=== PATIENT | female | born 1960 | race Caucasian/White ===

== ENCOUNTER 2016-05-27 04:49 | Inpatient (IN) | payer OTHER ==
[2016-05-05 13:30] VITALS: BMI 40.0
--- NOTE | 2016-05-05 14:12 | PAT Medication Instructions ---
Service Date May 05, 2016. Current Home Medication List Ibuprofen (Advil), 600-800 MG PO PRN Medication Instructions For Your Scheduled Surgery - Per surgeon instructions: Ibuprofen (Advil), 600-800 MG PO PRN If you have any questions please call us at [phone] (Dede Glaser PA-C ) or [phone] or [phone]
[2016-05-05 14:54] LABS: BASO % 0.2 %; BASO ABS # 0.02 K/uL (0-0.2); COMPLETE YES; EOS % 1.6 %; HEMATOCRIT 39.6 % (37-47); IG% 0.2 %; LYMPH % 43.5 %; LYMPH ABS # 3.61 K/uL (1.2-3.4); MEAN CELL VOLUME 89.2 fL (80-100); MEAN CORPUSCULAR HEMOGLOBIN 30.6 pg (25-34); MEAN CORPUSCULAR HGB CONC 34.3 g/dl (32-36); MEAN PLATELET VOLUME 9.4 fL (7.4-10.4); MONO % 5.3 %; NEUT % 49.2 %; PLATELET COUNT 324 K/uL (130-400); RED BLOOD COUNT 4.44 M/uL (4.2-5.4)
[2016-05-05 15:04] LABS: URINE APPEARANCE CLEAR (CLEAR); URINE BILIRUBIN NEG (NEG); URINE COLOR YELLOW; URINE NITRITE NEG (NEG); URINE PH 5.5 (4.5-7.5); URINE SPECIFIC GRAVITY 1.015 (1.000-1.030); UROBILINOGEN NEG (NEG); ZZUR CULT IF INDIC CLEAN CATCH NO
[2016-05-05 15:07] LABS: PARTIAL THROMBOPLASTIN RATIO 1.1; PROTHROMBIN TIME (PATIENT) 10.4 SECONDS (9.0-12.0)
[2016-05-05 15:09] LABS: MANUAL MICROSCOPIC REQUIRED? NO; REVIEW REQ? NO
[2016-05-05 15:14] LABS: BUN/CREATININE RATIO 15.2 (10-20); CALCIUM 9.1 mg/dl (8.5-10.1); CREATININE 0.88 mg/dl (0.60-1.20); POTASSIUM 3.8 mmol/L (3.5-5.1)
--- NOTE | 2016-05-05 15:15 | DIAGNOSTIC IMAGING REPORT ---
TWO VIEW CHEST CLINICAL HISTORY: Preoperative examination. FINDINGS: PA and lateral chest radiographs are obtained. No prior studies are available for comparison at the time of dictation. The examination is modestly degraded by large body habitus. The cardiomediastinal silhouette is unremarkable. The lungs and pleural spaces are clear. There is no pneumothorax. The skeletal structures are osteopenic. The bony thorax appears intact. IMPRESSION: No active disease in the chest. Electronically signed by: Peter Cabello M.D. 05/05/2016 3:13 PM Dictated Date/Time: 05/05/2016 3:13 PM
--- NOTE | 2016-05-26 15:36 | HISTORY & PHYSICAL EXAMINATION ---
DATE OF ADMISSION: 05/27/2016 CHIEF COMPLAINT: Left hip pain. HISTORY OF PRESENT ILLNESS: Hellen is a 56-year-old female with a 2-year history of pain in her left hip. The patient rates her pain a 3/10. She has pain with her daily activities. She has limited standing and walking tolerance. Pain is worse with weightbearing. The patient has history of anti-inflammatories without relief. She has failed conservative treatment and is scheduled for a left hip replacement. PAST MEDICAL HISTORY: History of anemia, obesity, asthma. She denies heart disease, diabetes or DVT. PAST SURGICAL HISTORY: Right total hip arthroplasty, D\T\C and tubal ligation. SOCIAL HISTORY: The patient denies alcohol use. She smokes half pack a day x30 years. She lives in a single story home. 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 FAMILY HISTORY: Positive for diabetes, positive for DVT in her father. MEDICATIONS: Motrin p.r.n. ALLERGIES: HYDROCODONE CAUSES ITCHING. REVIEW OF SYSTEMS: See HPI. Ten other systems reviewed, all negative. PHYSICAL EXAMINATION: VITAL SIGNS: Height 5 foot 5. Weight 242 pounds. BMI is 40. GENERAL: This is a well-developed, well-nourished female who is alert and oriented x3. Mood and affect are appropriate. HEAD, EYES, EARS, NOSE, AND THROAT: Normocephalic, atraumatic. Mucous membranes are moist and intact. NECK: Supple without lymphadenopathy. HEART: Regular rate and rhythm without murmurs, rubs or gallops. LUNGS: Clear to auscultation without wheezes or rhonchi. ABDOMEN: Soft and nontender. Bowel sounds are equal and active. EXTREMITIES: No ecchymosis, redness or warmth. Log roll of the hip reproduces pain in the groin. Range of motion is decreased. She is neurovascularly intact with +5/5 strength. X-RAY EXAMINATION: AP and lateral views show joint space narrowing and osteophyte formation. IMPRESSION: 1. Degenerative joint disease, left hip. 2. Morbid obesity. PLAN: The patient will be admitted for a left total hip arthroplasty. We will plan on aspirin for DVT prophylaxis. The patient will have home physical therapy postoperatively. PCP is Dr. Tyler Solomon of [facility].
[2016-05-27] VITALS (8 sets, daily range): BP systolic 93–137; BP diastolic 57–92; PULSE 59–75; TEMP 36.3–36.8; O2SAT 96–100; Ht 165.1 cm; Wt 109.1 kg
[~2016-05-27] VITALS: Ht 165.1 cm; Wt 109.1 kg
[~2016-05-27 04:49] MED LIST: IBUP-1050 PO
[2016-05-27] MEDS ORDERED: FAMOTIDINE 20 MG TAB PO SCH (06:00)
[2016-05-27] MEDS ORDERED: CeleBREX 200 MG CAP PO SCH (06:00)
[2016-05-27] MEDS ORDERED: GABAPENTIN 300 MG CAP PO SCH (06:00)
[2016-05-27] MEDS ORDERED: CEFAZOLIN 2000 MG/60 ML D5W 60 ML IV SCH (06:00)
[2016-05-27] MEDS ORDERED: OXYCODONE HCL 10 MG TABCR (OXYCONTIN) PO SCH (06:00)
[2016-05-27] MEDS ORDERED: LACTATED RINGER'S 1000ML IV SCH (06:00)
[2016-05-27] MEDS ORDERED: METOCLOPRAMIDE HCL 10 MG TAB PO SCH (06:00)
[2016-05-27] MEDS ORDERED: ACETAMINOPHEN 500 MG TAB PO SCH (06:00)
[2016-05-27] MEDS ORDERED: ROPIVACAINE 5MG/ML 30 ML 150 MG, BUPIVACAINE/EPINEPHR 0.5% MPF 30 ML, KETOROLAC TROMETH... INFIL SCH ×7 (06:00)
[2016-05-27] MEDS ORDERED: VANCOMYCIN INJ 400 MG in NSS 100ML IR SCH (06:00)
[2016-05-27] MEDS ORDERED: POLYMYXIN B SULFATE 100,000 UNITS in NSS 100ML IR SCH (06:00)
[2016-05-27] MEDS ORDERED: DEXAMETHASONE 4 MG TAB PO SCH (06:00)
[2016-05-27] MEDS: TRANEXAMIC ACID INJ 1,000 MG in SODIUM CHLORIDE 0.9% 100ML 100 ML IV SCH ×2 (06:07→06:30)
[2016-05-27] MEDS ORDERED: BUPIVACAINE 0.5 % 5 MG/1 ML PF 10ML VIAL ONE (06:15)
[2016-05-27] MEDS ORDERED: SCOPOLAMINE 1.5 MG TDSY TD ONE (06:45)
[2016-05-27] MEDS ORDERED: NURSING VERBAL MED ORDER STA (06:51)
--- NOTE | 2016-05-27 06:56 | History & Physical Bridge Note ---
H&P Re-Evaluation Bridge Note: I have examined the patient, reviewed the History & Physical and in the interval since the performance of the History & Physical I have noted the following changes of clinical significance: No changes noted
[2016-05-27] MEDS ORDERED: MIDAZOLAM HCL 1 MG/ML 2ML VIAL ONE (06:57)
[2016-05-27] MEDS ORDERED: ORTHO JOINT ANESTHETIC ONE (06:58)
[2016-05-27] MEDS ORDERED: POVIDONE-IODINE OP SOLN 30 ML BTL ONE (06:58)
[2016-05-27] MEDS ORDERED: BACITRACIN 50000 UNIT VIAL ONE (06:58)
[2016-05-27] MEDS ORDERED: KETAMINE HCL INJ 50 MG/ML 10 ML VIAL ONE (07:25)
[2016-05-27] MEDS ORDERED: FENTANYL CITRATE INJ 50 MCG/1 ML 2 ML VIAL ONE (07:28)
[2016-05-27] MEDS ORDERED: ONDANSETRON INJ 2 MG/ML 2 ML VIAL IV PRN ×2 (07:45→09:00)
[2016-05-27] MEDS ORDERED: EpHEDrine SULFATE INJ 50 MG/ML AMP IV PRN (07:45)
[2016-05-27] MEDS ORDERED: ATROPINE SULFATE 0.1 MG/ML 5ML SYR IV PRN (07:45)
[2016-05-27] MEDS ORDERED: FENTANYL CITRATE INJ 50 MCG/1 ML 2 ML VIAL IV PRN (07:45)
[2016-05-27] MEDS ORDERED: LIDOCAINE HCL 2% 2 ML VIAL (20MG/ML) ONE (07:49)
[2016-05-27] MEDS ORDERED: PHENYLEPHRINE 100MCG/ML 5ML SYR ONE (07:49)
[2016-05-27] MEDS ORDERED: EpHEDrine SULFATE 50MG/5ML SYR ONE (07:49)
[2016-05-27] MEDS ORDERED: PROPOFOL IV EMULSION 10 MG/ML 20 ML VIAL IV ONE ×2 (07:50→08:28)
[2016-05-27] MEDS ORDERED: EpHEDrine SULFATE INJ 50 MG/ML AMP ONE (08:18)
--- NOTE | 2016-05-27 08:55 | [facility] Post Operative Brief Note ---
Immediate Operative Summary Operative Date May 27, 2016. Pre-Operative Diagnosis Degenerative joint disease, left hip Post-Operative Diagnosis Degenerative joint disease, left hip MORBID OBESITY BMI 40 Procedure(s) Performed Left total hip arthroplasty, direct approach Surgeon Dr Bob Sherman Power Plant Operations Manager Surgeon(s) Meenu Hill PA-C Estimated Blood Loss 200ML Findings OBESE SEVERE DJD Specimens A: Left femoral head Complication(s) None Disposition Recovery Room / PACU
[2016-05-27] MEDS ORDERED: MoRPHine SULFATE 2 MG/ML CARP IV PRN (09:00)
[2016-05-27] MEDS: MULTIVITAMIN TAB PO SCH (09:00)
[2016-05-27] MEDS ORDERED: ZOLPIDEM TARTRATE 5 MG TAB PO PRN (09:00)
[2016-05-27] MEDS ORDERED: DiphenhydrAMINE HCL 50 MG/ML VIAL IV PRN (09:00)
[2016-05-27] MEDS ORDERED: SOD PHOSPHATE/SOD BIPHOSPHATE ENEMA 132 ML BTL PR PRN (09:00)
[2016-05-27] MEDS ORDERED: METOCLOPRAMIDE HCL INJ 5 MG/ML 2 ML VIAL IV PRN (09:00)
[2016-05-27] MEDS ORDERED: ALUMINUM/MAGNESIUM/SIMETH (MAALOX MAX) 30 ML UDC PO PRN (09:00)
[2016-05-27] MEDS ORDERED: OXYCODONE HCL IR 5 MG TAB (IMMEDIATE RELEASE) PO PRN (09:00)
[2016-05-27] MEDS ORDERED: BISACODYL 10 MG SUPP PR PRN (09:00)
[2016-05-27] MEDS ORDERED: TRAMADOL HCL 50 MG TAB PO PRN (09:00)
[2016-05-27] MEDS ORDERED: MAGNESIUM HYDROXIDE SUSP 30 ML UDC PO PRN (09:00)
--- NOTE | 2016-05-27 09:10 | DIAGNOSTIC IMAGING REPORT ---
INTRAOPERATIVE LEFT HIP SINGLE VIEW CLINICAL HISTORY: Left hip arthroplasty COMPARISON STUDY: No previous studies for comparison. FINDINGS: 12 seconds of fluoroscopic time was utilized. A single fluoroscopic spot images provided for interpretation. This demonstrates a total left hip arthroplasty. There is no dislocation. The distal portion of femoral spike is not included. IMPRESSION: Intraoperative radiograph demonstrating a total left hip arthroplasty. Electronically signed by: Ruiz Flannery M.D. 05/27/2016 9:09 AM Dictated Date/Time: 05/27/2016 9:08 AM
--- NOTE | 2016-05-27 09:36 | DIAGNOSTIC IMAGING REPORT ---
AP PELVIS AND LEFT HIP 2 VIEWS CLINICAL HISTORY: Left hip arthroplasty COMPARISON STUDY: No previous studies for comparison. FINDINGS: Bilateral total hip arthroplasties are visualized. On the left there are overlying surgical drains. There is air within the soft tissues consistent with recent surgery. There are no acute fractures. No dislocations are evident. IMPRESSION: Postsurgical changes of a recent total left hip arthroplasty. No evidence of fracture or dislocation. Electronically signed by: Ruiz Flannery M.D. 05/27/2016 9:35 AM Dictated Date/Time: 05/27/2016 9:34 AM
--- NOTE | 2016-05-27 09:58 | Anesthesiology Progress Note ---
Anesthesia Post Op Note Date & Time May 27, 2016 at 09:58 Vital Signs Pain Intensity: 0 Vital Signs Past 12 Hours Date Time Temp Pulse Resp B/P Pulse Ox O2 Delivery O2 Flow Rate FiO2 05/27/16 09:50 60 14 107/50 100 Nasal Cannula 2 05/27/16 09:40 60 15 103/55 100 Nasal Cannula 2 05/27/16 09:30 62 17 109/58 99 Nasal Cannula 2 05/27/16 09:20 60 13 114/60 100 Nasal Cannula 2 05/27/16 09:14 36.0 68 15 109/63 99 Nasal Cannula 2 05/27/16 05:33 36.8 72 18 137/92 96 Room Air Notes Mental Status: alert / awake / arousable, participated in evaluation Pt Amnestic to Procedure: Yes Nausea / Vomiting: adequately controlled Pain: adequately controlled Airway Patency, RR, SpO2: stable & adequate BP & HR: stable & adequate Hydration State: stable & adequate Neuraxial Anesthesia: was administered, sensory block is resolving Anesthetic Complications: no major complications apparent
[2016-05-27] MEDS: D5W AND 1/2NSS + 20MEQ KCL 1,000 ML IV SCH ×2 (11:07→20:35)
--- NOTE | 2016-05-27 11:43 | OPERATIVE REPORT ---
DATE OF OPERATION: 05/27/2016 PREOPERATIVE DIAGNOSES: 1. Degenerative arthritis, left hip. 2. Morbid obesity, BMI 40. POSTOPERATIVE DIAGNOSES: Same. PROCEDURE: Left total hip replacement. SURGEON: Bob Sherman MD DINKEY BRAKEMAN: Meneu Hill PA-C. ANESTHESIA: Spinal. BLOOD LOSS: 200 mL. REPLACEMENT FLUIDS: 1800 mL of crystalloid. DRAINS: Hemovac x2. CULTURES: None. COMPLICATIONS: None. COMPONENTS USED: [employer] hip system: Acetabulum size 52, femur size 5 standard offset, femoral head 0, neck length 36 mm. NOTE: Meenu Hill PA-C was present and assisted throughout due to the complicated nature of this case. She helped with preparation and set up. She first assisted throughout and personally closed the fascial, subcutaneous and skin layers and applied the postoperative dressing. DESCRIPTION: Following satisfactory spinal, the patient was supine. The left leg was placed in the traction device, the right leg in the well leg robertson. The leg was prepared with ChloraPrep and draped sterilely. Following a surgical time-out, an anterior approach was performed. The patient had an extremely large subcutaneous fat layer which made the approach difficult and added extra time and difficulty to the case. Eventually, hemostasis was controlled, the interval between the sartorius and tensor muscles was identified, the circumflex vessels were extremely thin and were coagulated. An anterior capsulotomy was performed exposing a severely arthritic femoral neck and head which were trimmed and removed. The acetabular self-retraining retractor was placed. Acetabular reaming was completed and with fluoroscopic guidance, a 52 shell was impacted and secured with a dome screw. Local anesthetic was placed and after irrigation, the poly liner was placed. The femur was placed into position of external rotation, extension and adduction. The femoral canal was difficult to identify because of the obesity. The canal was prepared up to a size 5 trial reduction with a 0 neck length head showed good soft tissue tension, good fit and fill of the proximal canal and leg lengths restored using fluoroscopic landmarks. The hip was dislocated. The trial component was removed. The final implant was placed and reduction with fluoroscopy confirmed similar position. A Betadine soak was performed. After 5 minutes the Betadine was irrigated. The capsule was closed with 1-0 Vicryl interrupted. The fascia with 1-0 Vicryl running. Another drain was placed in the fatty layer which was closed in 2 layers with #1 Vicryl and 2-0 Vicryl. Skin was closed with a running subcuticular stitch of 3-0 V-Loc. Dermabond and dry dressing were applied. The patient was returned to her bed in stable condition. I attest to the content of the Intraoperative Record and any orders documented therein. Any exceptio ns are noted below.
[2016-05-27] MEDS: PANTOprazole SOD 40 MG TAB PO SCH (12:20)
[2016-05-27] MEDS: ACETAMINOPHEN 500 MG TAB PO SCH ×2 (13:40→21:36)
[2016-05-27] MEDS: CEFAZOLIN IV 2,000 MG in DEXTROSE 5% 50ML 50 ML IV SCH ×2 (13:41→21:35)
[2016-05-27] MEDS: KETOROLAC TROMETHAMINE 30 MG/ML VIAL IV. SCH ×2 (13:59→20:34)
[2016-05-27] MEDS ORDERED: TRANEXAMIC ACID INJ 1,000 MG in SODIUM CHLORIDE 0.9% 100ML 100 ML IV SCH (15:00)
[2016-05-27] MEDS: ASPIRIN 81 MG ECTAB PO SCH (20:35)
[2016-05-27] MEDS ORDERED: SENNA 8.6 MG TAB PO SCH (21:00)
[2016-05-28] MEDS: KETOROLAC TROMETHAMINE 30 MG/ML VIAL IV. SCH ×2 (01:51→07:36)
[2016-05-28 03:06] VITALS: BP 112/75; PULSE 65; TEMP 36.8; O2SAT 98
[2016-05-28] MEDS: ACETAMINOPHEN 500 MG TAB PO SCH (05:41)
[2016-05-28] MEDS: D5W AND 1/2NSS + 20MEQ KCL 1,000 ML IV SCH (05:42)
[2016-05-28 05:50] LABS: BASO ABS # 0.01 K/uL (0-0.2); COMPLETE YES; HEMATOCRIT 31.8 % (37-47); IG% 0.3 %; LYMPH % 10.5 %; LYMPH ABS # 2.15 K/uL (1.2-3.4); MEAN CELL VOLUME 90.9 fL (80-100); MEAN CORPUSCULAR HEMOGLOBIN 30.6 pg (25-34); MEAN CORPUSCULAR HGB CONC 33.6 g/dl (32-36); MEAN PLATELET VOLUME 9.9 fL (7.4-10.4); MONO % 6.6 %; NEUT % 82.6 %; PLATELET COUNT 255 K/uL (130-400); WHITE BLOOD COUNT 20.46 K/uL (4.8-10.8)
[2016-05-28 06:21] LABS: BUN/CREATININE RATIO 13.5 (10-20); CALCIUM 8.7 mg/dl (8.5-10.1); CREATININE 0.71 mg/dl (0.60-1.20); POTASSIUM 4.2 mmol/L (3.5-5.1)
[2016-05-28 07:20] VITALS: BP 142/82; PULSE 57; TEMP 36.8; O2SAT 100
[2016-05-28] MEDS: ASPIRIN 81 MG ECTAB PO SCH (07:36)
[2016-05-28] MEDS: PANTOprazole SOD 40 MG TAB PO SCH (07:36)
[2016-05-28] MEDS: MULTIVITAMIN TAB PO SCH ×2 (07:36→07:37)
[2016-05-28 07:59] VITALS: BP 142/82; PULSE 57; TEMP 36.8; O2SAT 100
--- NOTE | 2016-05-28 08:54 | Orthopedic Progress Note ---
Orthopedic Progress Note Date of Service May 28, 2016. Subjective Post OP Day: 1 Reports: complaints (Main complaint is wanting to get home so she can be home and have a cigarette.), feeling well, pain controlled w PO medications, Denies: SOB, calf pain, chest pain, light headedness, nausea / vomiting Additional Notes: No complaints from the patient. Pain is controlled in the left hip. She states she is using the IV pole as her cane. She doesn't want to use a walker. States she knows when she is having trouble lifting the left leg. Objective calves soft nontender, N/V intact, capillary refill less than 2 sec., incision C /D/I, A&O x3, toes mobile Hemovac has been removed by nursing since the patient was talking about signing out AMA. Date Time Temp Pulse Resp B/P Pulse Ox O2 Delivery O2 Flow Rate FiO2 05/28/16 07:59 36.8 57 18 100 Room Air 05/28/16 07:45 Room Air 05/28/16 07:20 36.8 57 18 142/82 100 Room Air 05/28/16 03:06 36.8 65 18 112/75 98 Room Air 05/27/16 23:25 Room Air 05/27/16 23:15 36.8 74 17 109/66 98 Room Air 05/27/16 15:20 Room Air 05/27/16 13:47 36.7 75 19 100/59 98 Room Air 05/27/16 12:34 36.3 75 18 116/68 97 Nasal Cannula 2.0 05/27/16 11:29 99 Nasal Cannula 2.0 05/27/16 11:25 36.7 71 18 93/64 99 Nasal Cannula 2.0 05/27/16 10:56 Nasal Cannula 2.0 05/27/16 10:55 36.4 59 18 98/60 99 Nasal Cannula 2.0 05/27/16 10:51 Nasal Cannula 2.0 05/27/16 10:25 36.4 73 16 101/57 100 Nasal Cannula 2.0 05/27/16 10:10 59 12 99/56 100 Nasal Cannula 2 05/27/16 10:00 36.5 69 18 101/56 100 Nasal Cannula 2 05/27/16 09:50 60 14 107/50 100 Nasal Cannula 2 05/27/16 09:40 60 15 103/55 100 Nasal Cannula 2 05/27/16 09:30 62 17 109/58 99 Nasal Cannula 2 05/27/16 09:20 60 13 114/60 100 Nasal Cannula 2 05/27/16 09:14 36.0 68 15 109/63 99 Nasal Cannula 2 Laboratory Results 24 Hours: Test 05/28/16 05:25 White Blood Count 20.46 K/uL Red Blood Count 3.50 M/uL Hemoglobin 10.7 g/dL Hematocrit 31.8 % Mean Corpuscular Volume 90.9 fL Mean Corpuscular Hemoglobin 30.6 pg Mean Corpuscular Hemoglobin Concent 33.6 g/dl Platelet Count 255 K/uL Mean Platelet Volume 9.9 fL Neutrophils (%) (Auto) 82.6 % Lymphocytes (%) (Auto) 10.5 % Monocytes (%) (Auto) 6.6 % Eosinophils (%) (Auto) 0.0 % Basophils (%) (Auto) 0.0 % Neutrophils # (Auto) 16.88 K/uL Lymphocytes # (Auto) 2.15 K/uL Monocytes # (Auto) 1.35 K/uL Eosinophils # (Auto) 0.00 K/uL Basophils # (Auto) 0.01 K/uL Assessment & Plan Assessment: POD #1 s/p left KERI Inhouse Planning Pain Management: Toradol, Ultram, Morphine, PO Tylenol, Oxy IR DVT Prophylaxis: TEDs, ASA (81 mg BID) Discharge Planning Discharge Planning: home (D/C home today) Pain Management: PO Tylenol, Oxy IR, other (MS Contin) DVT Prophylaxis: TEDs, ASA
[2016-05-28] MEDS ORDERED: RXC5 PO (08:57)
[2016-05-28] MEDS ORDERED: ACET-1138 PO (08:57)
[2016-05-28] MEDS ORDERED: ASPEC81 PO (08:57)
[2016-05-28] MEDS ORDERED: MORP15TA19 PO (08:57)
[2016-05-28] MEDS ORDERED: ONDA8TAB6 PO (08:57)
[2016-05-28] MEDS ORDERED: CLB200 PO (08:57)
--- NOTE | 2016-05-28 09:00 | Discharge Instructions ---
Discharge Instructions Date of Service May 28, 2016. Admission Reason for Admission: Left Degenerative Arthritis - Thigh/Pelvis Discharge Discharge Diagnosis / Problem: left hip osteoarthritis Discharge Goals Goal(s): Decrease discomfort, Improve function Activity Recommendations Activity Limitations: as noted below Lifting Limitations: until after follow-up appointment Exercise/Sports Limitations: until after follow-up appointment May Resume Sexual Activity: when tolerated Shower/Bathe: keep incision dry Driving or Machine Use: When cleared by Dr. Sherman's clinic Weightbearing Status: Left weightbearing (as tolerated) . Instructions / Follow-Up Instructions / Follow-Up ACTIVITY RECOMMENDATIONS: SELF CARE INSTRUCTIONS AFTER TOTAL HIP REPLACEMENT : Direct Anterior Approach Until the incision and soft tissues around your hip have healed, there is a possibility that the hip prosthesis could dislocate. A. Hip flexion ( Up & Down out of chair or steps ) may be difficult. This is normal. B. Numbness in front of the thigh is also normal for a few weeks. C. Use hand rails when walking on stairs. D. Wear low heeled shoes with non-slip soles. E. Be sure that your floors are free of things that could trip you - throw rugs , electrical cords, small objects. Avoid wet and waxed floors, especially with crutches and canes. F. Try to walk several times a day with rest periods between. G. Continue with all the exercises taught to you in the hospital. Again, make walking a part of your daily routine. SPECIAL CARE INSTRUCTIONS: VERY IMPORTANT TO READ AND REVIEW A. You may still be at risk for phlebitis and blood clots. 1. Wear surgical stockings (ARYAN hose) for 2 weeks after surgery to improve circulation and reduce swelling. 2. Take Aspirin 81mg twice daily for 4 weeks or as directed by your doctor. This is your blood thinner. 3. High risk patients may be prescribed a stronger blood thinner if necessary. 4. If you are on Coumadin normally, your family doctor/hospital chief financial officer should monitor your blood work. Expect a phone call the day of or the day after bloodwork is drawn to adjust your dosage. B. You must take antibiotics before having dental work, bladder, bowel and other surgery. Your doctor will provide you with a permanent card to carry describing precautions. C. Call [facility] if you have a fever, redness or swelling around the incision, cloudy drainage from incision, or sudden increase in pain in your hip, not relieved by your regular pain medication. D. Please call the office at if you have any concerns or questions about your operation or recovery. * YOU MAY SHOWER, NO TUB BATHS UNTIL CLEARED BY YOUR DOCTOR. - Keep an extra close eye on the top portion of your incision. Be sure to keep clean & dry. * WEAR ARYAN HOSE 20 HOURS PER DAY FOR 2 WEEKS. * YOU MAY PROGRESS FROM A WALKER, TO A CANE, TO INDEPENDENT AT YOUR OWN PACE. * MOST PATIENTS WILL HAVE HOME NURSING FOR THERAPY. IF YOU DECIDE TO DO OUTPATIENT PHYSICAL THERAPY, PLEASE SCHEDULE THIS 3 TIMES PER WEEK. * DERMABOND Prineo- This is a mesh tape dressing that is covered with glue. It should remain in place until the incision is properly healed, usually 10-14 days. This dressing is designed to naturally slough off. You may trim the excess mesh tape as it peels off. Incision may be briefly wet in a shower. Dry immediately by blotting with a clean, dry towel. Do not bath or swim until instructed by your doctor. Do not scratch, rub, or pick at the dressing. Do not apply any topical ointments or lotions until dressing is completely removed and/or instructed by your doctor. There may be a small piece of suture material at one end of your incision. Do not pull or trim this. If it is bothersome or catching on clothing, you may cover it with a band-aid. FOLLOW UP VISIT: If appointment is not already scheduled: Please call [facility] to make a follow-up appointment for 2 weeks after your surgery at . Current Hospital Diet Patient's current hospital diet: Regular Diet Discharge Diet Recommended Diet: Regular Diet Procedures Procedures Performed: Left total hip arthroplasty, direct anterior approach Pending Studies Studies pending at discharge: no Medical Emergencies . Who to Call and When: Medical Emergencies: If at any time you feel your situation is an emergency, please call 911 immediately. . Non-Emergent Contact Non-Emergency issues call your: Surgeon Call Non-Emergent contact if: temperature is above 101, your pain is not controlled, your pain is worsening, wound has increased drainage, wound has increased redness, wound has increased pain . "Provider Documentation" section prepared by Jonathan Sepulveda. VTE Core Measure Inpt VTE Proph given/why not?: Other Anticoagulation (Aspirin 81 mg every 12 hours for 30 days), TIsrael Aguirreings
[2016-05-29] MEDS ORDERED: CeleBREX 200 MG CAP PO SCH (21:00)
--- NOTE | 2016-05-30 15:15 | DISCHARGE SUMMARY ---
DISCHARGE DIAGNOSIS: Degenerative joint disease, left hip. SECONDARY DIAGNOSIS: None. CONSULTS: None. COMPLICATIONS: None. PROCEDURE: The patient underwent a direct anterior left total hip arthroplasty with Dr. Sherman on 05/27/2016. BRIEF HISTORY: Please see previously dictated history and physical. HOSPITAL SUMMARY: The patient was admitted on the above day for the above procedure. Procedure went without complication. Postop day #1, the patient was feeling well without complaints. She denied chest pain or shortness of breath. Vital signs were stable. She was afebrile. Dressing was clean, dry and intact. She was neurovascularly intact. Calves were soft and nontender. The patient's Hemovac was removed by nursing as she was threatening to sign out AMA. The patient was discharged home later that day in stable condition. For further review, please see the chart. Lab, x-ray data and discharge instructions as per chart.
== END 2016-05-28 10:29 | disposition home health service (06) | DRG 470 ==
LOC: ENRESERVTM → ENRESERVDT → C.ACU 04:49 → C.3E 08:58
PROVIDERS: ADMIT Orthopaedic Surgery; ATTEND Orthopaedic Surgery
PROC: 0SRB0JZ Replacement of Left Hip Joint with Synthetic Substitute, Open Approach (ICD-10-PCS; principal; 2016-05-27 07:15)
DX: M16.12 Unilateral primary osteoarthritis, left hip (principal); Z68.41 Body mass index [BMI] 40.0-44.9, adult; E66.01 Morbid (severe) obesity due to excess calories; Z96.641 Presence of right artificial hip joint; F17.210 Nicotine dependence, cigarettes, uncomplicated; Z83.3 Family history of diabetes mellitus

== ENCOUNTER 2016-06-05 18:51 | Emergency (ER) | payer OTHER ==
[~2016-06-05] VITALS: Ht 165.1 cm; Wt 110.2 kg
[~2016-06-05 18:51] MED LIST changes: +ACET-1138 PO; +ASPEC81 PO; +CLB200 PO; -IBUP-1050 PO; +MORP15TA19 PO; +ONDA8TAB6 PO; +RXC5 PO
[2016-06-05 19:01] VITALS: TEMP 37; Ht 165.1 cm; Wt 110.2 kg
--- NOTE | 2016-06-05 20:34 | EMERGENCY ROOM VISIT NOTE ---
History Report prepared by Brianna: Sav Fleming Under the Supervision of: Dr. Dejan Valencia M.D. First contact with patient: 20:15 Chief Complaint: HIP PAIN Stated Complaint: HEADACHE,NASAL DRIP,RT HIP PAIN-SURGERY LAST WEEK History of Present Illness The patient is a 56 year old female who presents to the Emergency Room with complaints of constant left hip pain starting yesterday. The patient state that she got her hip replaced 9 days ago, and it is currently hurting, and when she sat down earlier she felt a stabbing pain in her hip. She states that she is currently having swelling in her legs, fevers, chills, cough, headache, and shortness of breath while walking. The patient states that she should be taking Celebrex, however she has not gotten it yet. She states that she is not taking anything for pain currently. The patient denies any recent falls. Her daughter is also sick with respiratory symptoms and a cough and is being treated for influenza and pneumonia after testing positive for influenza B. No numbness or weakness in the legs. Source of History: patient, family Onset: yesterday Position: other (left hip) Quality: stabbing Timing: constant Associated Symptoms: + SOB, + chills, + cough, + fevers, + headache Note: Associated symptoms: Swelling in her legs Review of Systems See HPI for pertinent positives & negatives. A total of 10 systems reviewed and were otherwise negative. Past Medical & Surgical Surgical Problems: (1) History of arthroplasty of left hip (2) Post-operative state Old medical records were reviewed. Nurse's notes were reviewed and I agree with. Family History DVT Diabetes mellitus Social History Smoking Status: Current Every Day Smoker Drug Use: none Housing Status: lives with family Occupation Status: employed Current/Historical Medications Scheduled Aspirin (Aspirin EC Low Dose), 81 MG PO BID Azithromycin (Zithromax Z-Hudson), 0 PO UD Oseltamivir (Tamiflu), 75 MG PO BID Allergies Coded Allergies: Hydrocodone (Verified Allergy, Unknown, ITCHING, 06/05/16) Oxycodone (Unverified Allergy, Unknown, itching, 06/05/16) Physical Exam Vital Signs Date Time Temp Pulse Resp B/P Pulse Ox O2 Delivery O2 Flow Rate FiO2 06/05/16 23:38 88 18 113/74 96 06/05/16 22:22 74 16 121/59 98 06/05/16 19:01 37.0 79 18 159/86 98 Room Air Physical Exam General: Non-ill appearing middle aged female in no acute distress. HEENT: Normal cephalic atraumatic. Pupils are equal round and reactive to light. Sclera are anicteric. Extraocular movements are intact. Oropharynx is pink with moist mucous membranes. No swelling of the mouth lips or tongue. Neck: Supple with a midline trachea. No meningeal signs or stiffness, no JVD or bruits. No Stridor. Chest: Clear to auscultation bilaterally. No wheezes or rhonchi. No increased work of breathing. Heart: regular rate and rhythm. Abdomen: Soft nontender, nondistended without rebound guarding or rigidity. Extremities: Trace to 1+ edema in the right lower extremity. 1+ edema in the left lower extremity. Definite well healing incision without infection or dehiscence. No cyanosis or clubbing. No calf tenderness or assymetry Spine/Back. Non tender to palpation. No CVA tenderness Skin: Good turgor without rashes. Neurologic exam: Cranial nerves two through 12 are intact. Motor and sensation are intact and symmetrical throughout. Medical Decision & Procedures ER Provider Diagnostic Interpretation: Radiology results as stated below per my review and radiologist interpretation: CHEST ONE VIEW PORTABLE CLINICAL HISTORY: CHEST PAIN dyspnea COMPARISON STUDY: 05/05/2016 FINDINGS: Slightly prominent markings left base. Lungs otherwise appear clear. No evidence for cardiac enlargement. IMPRESSION: Early infiltrate left base Electronically signed by: Demian Vallejo M.D. 06/05/2016 8:55 PM Dictated Date/Time: 06/05/2016 8:54 PM BILATERAL LOWER EXTREMITY VENOUS DOPPLER HISTORY: Pain. Edema. eval for dv COMPARISON STUDY: None. FINDINGS: There is normal compressibility, flow, and augmentation within the bilateral lower extremity deep venous systems. IMPRESSION: No DVT within the right or left lower extremity. Electronically signed by: Demian Vallejo M.D. 06/05/2016 10:00 PM Dictated Date/Time: 06/05/2016 9:59 PM Laboratory Results 06/05/16 20:40 Red Blood Count 3.71, Mean Corpuscular Volume 90.6, Mean Corpuscular Hemoglobin 29.4, Mean Corpuscular Hemoglobin Concent 32.4, Mean Platelet Volume 8.4, Neutrophils (%) (Auto) 47.6, Lymphocytes (%) (Auto) 34.2, Monocytes (%) (Auto) 13.6, Eosinophils (%) (Auto) 3.2, Basophils (%) (Auto) 0.2, Neutrophils # (Auto ) 3.16, Lymphocytes # (Auto) 2.27, Monocytes # (Auto) 0.90, Eosinophils # (Auto ) 0.21, Basophils # (Auto) 0.01 06/05/16 20:40 Test 06/05/16 20:40 06/05/16 20:56 White Blood Count 6.63 K/uL (4.8-10.8) Red Blood Count 3.71 M/uL (4.2-5.4) Hemoglobin 10.9 g/dL (12.0-16.0) Hematocrit 33.6 % (37-47) Mean Corpuscular Volume 90.6 fL (80-100) Mean Corpuscular Hemoglobin 29.4 pg (25-34) Mean Corpuscular Hemoglobin Concent 32.4 g/dl (32-36) Platelet Count 429 K/uL (130-400) Mean Platelet Volume 8.4 fL (7.4-10.4) Neutrophils (%) (Auto) 47.6 % Lymphocytes (%) (Auto) 34.2 % Monocytes (%) (Auto) 13.6 % Eosinophils (%) (Auto) 3.2 % Basophils (%) (Auto) 0.2 % Neutrophils # (Auto) 3.16 K/uL (1.4-6.5) Lymphocytes # (Auto) 2.27 K/uL (1.2-3.4) Monocytes # (Auto) 0.90 K/uL (0.11-0.59) Eosinophils # (Auto) 0.21 K/uL (0-0.5) Basophils # (Auto) 0.01 K/uL (0-0.2) RDW Standard Deviation 46.3 fL (36.4-46.3) RDW Coefficient of Variation 13.9 % (11.5-14.5) Immature Granulocyte % (Auto) 1.2 % Immature Granulocyte # (Auto) 0.08 K/uL (0.00-0.02) Erythrocyte Sedimentation Rate 72 mm/hr (0-21) Prothrombin Time 10.0 SECONDS (9.0-12.0) Prothromb Time International Ratio 0.9 (0.9-1.1) Activated Partial Thromboplast Time 29.0 SECONDS (21.0-31.0) Partial Thromboplastin Ratio 1.1 Anion Gap 9.0 mmol/L (3-11) Est Creatinine Clear Calc Drug Dose 90.2 ml/min Estimated GFR () 88.8 Estimated GFR (Non- 76.6 BUN/Creatinine Ratio 22.3 (10-20) Calcium Level 9.2 mg/dl (8.5-10.1) Total Bilirubin 0.2 mg/dl (0.2-1) Direct Bilirubin < 0.1 mg/dl (0-0.2) Aspartate Amino Transf (AST/SGOT) 39 U/L (15-37) Alanine Aminotransferase (ALT/SGPT) 69 U/L (12-78) Alkaline Phosphatase 286 U/L (45-117) C-Reactive Protein 2.42 mg/dl (0-0.29) Total Protein 6.9 gm/dl (6.4-8.2) Albumin 2.9 gm/dl (3.4-5.0) Lipase 145 U/L (73-393) Bedside Troponin I 0.000 ng/ml (0-0.045) GT-Qtg-S-Type Natriuretic Peptide < 15 pg/ml (0-900) Lab results as reviewed by me Medications Administered Medications (Trade) Dose Ordered Sig/Miranda Route Start Time Stop Time Status Last Admin Dose Admin Azithromycin (Zithromax Tab) 500 mg NOW ONCE PO 06/05/16 23:15 06/05/16 23:16 DC 06/05/16 23:26 500 MG Oseltamivir Phosphate (Tamiflu Cap) 75 mg NOW STAT PO 06/05/16 23:13 06/05/16 23:14 DC 06/05/16 23:25 75 MG ECG Indication: other (hip pain) Rate (beats per minute): 72 Rhythm: normal sinus Findings: no acute ischemic change, no ectopy Comparison ECG Date: 05/05/16 Change: no significant change ED Course 2015: Past medical records reviewed. The patient was evaluated in room B7, and a complete history and physical examination were performed. 2307: Upon reevaluation, the patient is feeling better. I discussed the results and treatment plan with her. She verbalized agreement of the treatment plan. The patient was discharged home. 2313: Tamiflu Cap 75mg PO 2315: Zithromax Tab 500mg PO Medical Decision Differentials include, but are not limited to; DVT, CHF, infection, electrolyte or metabolic abnormality, cardiac disease. This patient comes in as described above. She has a constellation of symptoms. She recent hip surgery and has swelling on both of her legs left greater than right. She only has mild edema. This is new and she has been wearing compression stockings. Her incision looks like to healing well without infection. I did an extensive workup. Her symptoms do not suggest an acute cardiac event. EKG is nonischemic. Chest x-ray suggests infiltrate in the base . her daughter is being treated for influenza and pneumonia. I will treat her with for this as well she was given Tamiflu and azithromycin Z-Hudson, the first dose of both was given here. Ultrasounds her legs shows no evidence of DVT . at this point, I do not think this is likely related congestive heart failure or related to kidney problems. She also some pain management issues as she is unable take most pain medication is having a hard time getting her prescription filled at the pharmacy. I had a case picker talk to her and they're going to call and help her straighten this out tomorrow. Apparently there is some insurance and provider issues with approval. The patient feels good and would like to go home. I encouraged to return if: fever, worsening of symptoms, increasing pain or swelling, any new problems or concerns. I also encouraged her to follow-up with her doctor in 1-2 days for recheck. Impression Primary Impression: Lower extremity edema Additional Impressions: Left hip pain Flu-like symptoms Pneumonia Scribe Attestation The scribe's documentation has been prepared under my direction and personally reviewed by me in its entirety. I confirm that the note above accurately reflects all work, treatment, procedures, and medical decision making performed by me. Departure Information Dispostion Home / Self-Care Prescriptions Azithromycin (ZITHROMAX Z-HUDSON) 250 Mg Tab 0 PO UD, #1 PKT Prov: Dejan Valencia M.D. 06/05/16 Oseltamivir (Tamiflu) 75 Mg Cap 75 MG PO BID, #10 CAP Prov: Dejan Valencia M.D. 06/05/16 Referrals Tyler Solomon M.D. (PCP) Forms HOME CARE DOCUMENTATION FORM, IMPORTANT VISIT INFORMATION, WORK / SCHOOL INSTRUCTIONS Patient Instructions My [facility] Additional Instructions Rest. Drink plenty of fluids. Continue your pain medications and our case picker will help you get the Celebrex straighten out tomorrow. Use Tamiflu twice a day for 5 days Use azithromycin Z-Hudson for 5 days as directed Return if: Worsening of symptoms, chest pain, shortness of breath, fever chills , any new problems or concerns. Problem Qualifiers
--- NOTE | 2016-06-05 20:56 | DIAGNOSTIC IMAGING REPORT ---
CHEST ONE VIEW PORTABLE CLINICAL HISTORY: CHEST PAIN dyspnea COMPARISON STUDY: 05/05/2016 FINDINGS: Slightly prominent markings left base. Lungs otherwise appear clear. No evidence for cardiac enlargement. IMPRESSION: Early infiltrate left base Electronically signed by: Demian Vallejo M.D. 06/05/2016 8:55 PM Dictated Date/Time: 06/05/2016 8:54 PM
[2016-06-05 21:02] LABS: BASO % 0.2 %; BASO ABS # 0.01 K/uL (0-0.2); COMPLETE YES; EOS % 3.2 %; HEMATOCRIT 33.6 % (37-47); IG% 1.2 %; LYMPH % 34.2 %; LYMPH ABS # 2.27 K/uL (1.2-3.4); MEAN CELL VOLUME 90.6 fL (80-100); MEAN CORPUSCULAR HEMOGLOBIN 29.4 pg (25-34); MEAN CORPUSCULAR HGB CONC 32.4 g/dl (32-36); MEAN PLATELET VOLUME 8.4 fL (7.4-10.4); MONO % 13.6 %; NEUT % 47.6 %; PLATELET COUNT 429 K/uL (130-400); RED BLOOD COUNT 3.71 M/uL (4.2-5.4); WHITE BLOOD COUNT 6.63 K/uL (4.8-10.8)
[2016-06-05 21:09] LABS: INR 0.9 (0.9-1.1); PARTIAL THROMBOPLASTIN RATIO 1.1
[2016-06-05 21:16] LABS: POINT OF CARE PRO-BNP < 15 pg/ml (0-900)
[2016-06-05 21:18] LABS: ALT/SGPT 69 U/L (12-78); BLOOD UREA NITROGEN 19 mg/dl (7-18); BUN/CREATININE RATIO 22.3 (10-20); C-REACTIVE PROTEIN 2.42 mg/dl (0-0.29); CALCIUM 9.2 mg/dl (8.5-10.1); CARBON DIOXIDE 25 mmol/L (21-32); CHLORIDE 106 mmol/L (98-107); CREATININE 0.84 mg/dl (0.60-1.20); GLUCOSE 94 mg/dl (70-99); SODIUM 140 mmol/L (136-145)
[2016-06-05 21:21] LABS: ALKALINE PHOSPHATASE 286 U/L (45-117); AST/SGOT 39 U/L (15-37)
--- NOTE | 2016-06-05 22:01 | DIAGNOSTIC IMAGING REPORT ---
BILATERAL LOWER EXTREMITY VENOUS DOPPLER HISTORY: Pain. Edema. eval for dv COMPARISON STUDY: None. FINDINGS: There is normal compressibility, flow, and augmentation within the bilateral lower extremity deep venous systems. IMPRESSION: No DVT within the right or left lower extremity. Electronically signed by: Demian Vallejo M.D. 06/05/2016 10:00 PM Dictated Date/Time: 06/05/2016 9:59 PM
[2016-06-05] MEDS ORDERED: OSELTAMIVIR PHOSPHATE 75 MG CAP PO STA (23:13)
[2016-06-05] MEDS ORDERED: AZITHROMYCIN 250 MG TAB PO ONE (23:15)
[2016-06-05] MEDS ORDERED: OSEL75CA12 PO (23:16)
[2016-06-05] MEDS ORDERED: AZITTAB PO (23:22)
[2016-06-05 23:38] VITALS: BP 113/74; PULSE 88; O2SAT 96
== END 2016-06-05 23:38 | disposition home or self-care (01) ==
LOC: C.EDB 18:52
DX: R60.0 Localized edema (principal); M25.552 Pain in left hip; J18.9 Pneumonia, unspecified organism; Z96.642 Presence of left artificial hip joint; F17.200 Nicotine dependence, unspecified, uncomplicated; Z79.82 Long term (current) use of aspirin

== ENCOUNTER 2016-08-16 11:48 | Emergency (ER) | payer OTHER ==
[~2016-08-16] VITALS: Ht 165.1 cm; Wt 110.6 kg
[~2016-08-16 11:48] MED LIST changes: -ACET-1138 PO; -CLB200 PO; -MORP15TA19 PO; -ONDA8TAB6 PO; +OSEL75CA12 PO; -RXC5 PO
[2016-08-16 11:51] VITALS: TEMP 36.7; Ht 165.1 cm; Wt 110.6 kg
[2016-08-16] MEDS ORDERED: IBUP-1050 PO (12:22)
[2016-08-16 13:38] LABS: BASO % 0.2 %; BASO ABS # 0.02 K/uL (0-0.2); COMPLETE YES; EOS % 1.8 %; HEMATOCRIT 42.2 % (37-47); IG% 0.2 %; LYMPH % 45.9 %; LYMPH ABS # 3.84 K/uL (1.2-3.4); MEAN CELL VOLUME 90.4 fL (80-100); MEAN CORPUSCULAR HEMOGLOBIN 29.6 pg (25-34); MEAN CORPUSCULAR HGB CONC 32.7 g/dl (32-36); MONO % 5.4 %; NEUT % 46.5 %; PLATELET COUNT 351 K/uL (130-400); RED BLOOD COUNT 4.67 M/uL (4.2-5.4); WHITE BLOOD COUNT 8.36 K/uL (4.8-10.8)
[2016-08-16 13:58] LABS: BUN/CREATININE RATIO 19.2 (10-20); CALCIUM 9.3 mg/dl (8.5-10.1); CREATININE 0.63 mg/dl (0.60-1.20)
--- NOTE | 2016-08-16 14:11 | DIAGNOSTIC IMAGING REPORT ---
L-SPINE MIN 4 VIEWS ROUTINE CLINICAL HISTORY: L sided lumbar back pain COMPARISON STUDY: No previous studies for comparison. FINDINGS: There are 5 lumbar type vertebral bodies. No fractures or subluxations are visualized. There are no destructive lesions. There are mild multilevel degenerative changes. IMPRESSION: Mild multilevel degenerative change. No fractures, subluxations, or destructive lesions are visualized Electronically signed by: Ruiz Flannery M.D. 08/16/2016 2:10 PM Dictated Date/Time: 08/16/2016 2:09 PM
[2016-08-16 14:17] LABS: URINE APPEARANCE CLEAR (CLEAR); URINE BILIRUBIN NEG (NEG); URINE COLOR YELLOW; URINE NITRITE NEG (NEG); URINE SPECIFIC GRAVITY 1.014 (1.000-1.030); UROBILINOGEN NEG (NEG)
[2016-08-16 14:25] VITALS: BP 150/101; PULSE 76; O2SAT 96
[2016-08-16 14:27] LABS: MANUAL MICROSCOPIC REQUIRED? NO; REVIEW REQ? NO
--- NOTE | 2016-08-16 20:31 | EMERGENCY ROOM VISIT NOTE ---
ED Visit Note First contact with patient: 12:32 Chief Complaint: Wound infection. History of Present Illness: Ms. White is a 48-year-old white female who ambulates into the ED complaining of a possible incisional wound infection and left-sided lumbar back pain. Patient reports on 05/27/2016 she had a left replacement performed by Dr. Sherman. She reports since her surgery she's had some minor complications with her incision. She reports 3 days ago a scab on her incision fell off and when she looked at the underlying tissue she thought it looked like it had pus within the wound. She attempted to remove the pus but was unsuccessful. The wound re-scabbed over and then another area of the incision had a scab fall off with the same type of pus like material. This is associated with what she feels is skin redness and the insertion "feels firm". She has not contacted her orthopedic physician concerning these issues. She denies any estela fevers, chills, other skin eruptions, other skin color changes, abdominal pain, nausea, vomiting. Additionally she complains of left-sided lumbar back pain. This started yesterday after she was at work and standing most of the day. She describes the pain as an achy sensation with some mild sharpness. She rates this discomfort 5/10. The pain is nonradiating. Her pain worsens minimally with palpation and flexion at the waist. She has not identified any alleviating factors related to the pain. She has not taken any medication for this discomfort prior to arrival at the hospital. She has noted intermittent swelling of the bilateral legs since her surgery but does report a Doppler ultrasound was perform in was found. The swelling typically reveal also on its own after sleep. She denies any associated symptoms including those listed above, lower extremity weakness/numbness/tingling, genital paresthesias, bowel and bladder dysfunction, urinary symptoms, vaginal bleeding/discharge. Review of Systems: As noted above in history of present illness. All body systems were reviewed and found to be negative as noted above. Past Medical History: As previously noted, bronchitis, pneumonia, borderline diabetes, status post, right hip arthroplasty, tubal ligation, unspecified sinus surgery, teeth extraction. Current Medications: Ibuprofen. Allergies to Medications: Hydrocodone, oxycodone, aspirin. Social History: Patient is currently at [employer]; she feels safe in her home environment; she admits to tobacco use and denies alcohol use. Physical Examination: Vital Signs: Date Time Temp Pulse Resp B/P Pulse Ox O2 Delivery O2 Flow Rate FiO2 08/16/16 14:25 76 16 150/101 96 Room Air 08/16/16 11:51 36.7 76 20 149/81 97 Room Air GENERAL: 56-year-old female in mild distress due to pain, nontoxic-appearing, afebrile and hemodynamically stable. NEUROLOGICAL: Awake, alert and oriented to person, place and time. Answering questions appropriately and following commands. Normal gait. Good hand eye coordination. No focal motor sensory deficits. SKIN: Warm, dry and pink. No soft tissue eruptions or trauma noted. HEENT: Atraumatic and normocephalic. BACK: No tenderness over the bony cervical and thoracic spine. No CVA tenderness. Mild tenderness over the left lumbar spine at the L3-L4 area. Negative straight leg raise test. THORAX: Lungs sounds are clear to auscultation and equal bilaterally with symmetrical chest wall. Obese HEART: Regular rate and rhythm. No gallops, rubs or murmurs are appreciated. ABDOMEN: Obese, soft and nontender. Positive bowel sounds in all quadrants. Patient's incision in the left inguinal area is clean dry and intact. There is one area that is scabbed. The skin is mildly erythematous but there is no edematous and there is no appearance of cellulitis. There is no lymphangitis. The incision is not tender. I do not see any gross signs of infection. EXTREMITIES: Moves all extremities well on command and with purpose. All distal neurovascular statuses are intact and equal bilaterally. No calf tenderness or cords. ED Course: Patient is assessed as noted above. Laboratory Testing: Test 08/16/16 13:25 08/16/16 13:40 Range/Units White Blood Count 8.36 4.8-10.8 K/uL Red Blood Count 4.67 4.2-5.4 M/uL Hemoglobin 13.8 12.0-16.0 g/dL Hematocrit 42.2 37-47 % Mean Corpuscular Volume 90.4 80-100 fL Mean Corpuscular Hemoglobin 29.6 25-34 pg Mean Corpuscular Hemoglobin Concent 32.7 32-36 g/dl Platelet Count 351 130-400 K/uL Mean Platelet Volume 9.0 7.4-10.4 fL Neutrophils (%) (Auto) 46.5 % Lymphocytes (%) (Auto) 45.9 % Monocytes (%) (Auto) 5.4 % Eosinophils (%) (Auto) 1.8 % Basophils (%) (Auto) 0.2 % Neutrophils # (Auto) 3.88 1.4-6.5 K/uL Lymphocytes # (Auto) 3.84 1.2-3.4 K/uL Monocytes # (Auto) 0.45 0.11-0.59 K/uL Eosinophils # (Auto) 0.15 0-0.5 K/uL Basophils # (Auto) 0.02 0-0.2 K/uL RDW Standard Deviation 46.2 36.4-46.3 fL RDW Coefficient of Variation 14.0 11.5-14.5 % Immature Granulocyte % (Auto) 0.2 % Immature Granulocyte # (Auto) 0.02 0.00-0.02 K/uL Sodium Level 141 136-145 mmol/L Potassium Level 4.0 3.5-5.1 mmol/L Chloride Level 108 98-107 mmol/L Carbon Dioxide Level 28 21-32 mmol/L Anion Gap 5.0 3-11 mmol/L Blood Urea Nitrogen 12 7-18 mg/dl Creatinine 0.63 0.60-1.20 mg/dl Est Creatinine Clear Calc Drug Dose 120.5 ml/min Estimated GFR () 114.6 Estimated GFR (Non- 98.9 BUN/Creatinine Ratio 19.2 10-20 Random Glucose 100 70-99 mg/dl Calcium Level 9.3 8.5-10.1 mg/dl Urine Color YELLOW Urine Appearance CLEAR CLEAR Urine pH 7.0 4.5-7.5 Urine Specific Vivian 1.014 1.000-1.030 Urine Protein NEG NEG Urine Glucose (UA) NEG NEG Urine Ketones NEG NEG Urine Occult Blood NEG NEG Urine Nitrite NEG NEG Urine Bilirubin NEG NEG Urine Urobilinogen NEG NEG Urine Leukocyte Esterase NEG NEG Lumbar Spine X-Rays: Were reviewed by myself and read by the radiologist showing no fractures, subluxation or instructed lesions. Multiple multilevel degenerative changes were noted.. Patient was offered pain medication and refused. Patient was reassessed multiple times during her stay in the emergency department. Patient's case was reviewed with Dr. Landa; we agreed on diagnostic approach, treatment, disposition and plan. Patient was educated about today's findings and instructed on her treatment plan ; she verbalized understanding and agreement with this plan. Clinical Impression: Lumbar back pain. Surgical incision complaints. Decision-Making: Initially my differential diagnosis I considered muscle spasms of the lower back, strain of the lower back, herniated disc, contusion and other causes. From her incision site I considered infection, pseudocyst and other causes. Disposition: Patient discharged home in stable condition; prior to departure she was reassessed and subjectively reported that she was pain and symptom-free. Plan: Patient was encouraged to alternate ibuprofen and acetaminophen as needed for pain every 3 hours. Patient was encouraged use ice on areas of pain 5-6 times a day for 20-30 minutes. Patient was encouraged to keep her incision sites clean with soap and water and follow-up with orthopedics for recheck. Patient was encouraged return the ED for worsening/uncontrolled back pain, leg weakness/numbness/tingling, rectal/genital paresthesias, bowel and bladder dysfunction, fevers, drainage from her wound or any new/concerning symptoms.
== END 2016-08-16 14:35 | disposition home or self-care (01) ==
LOC: C.EDB 11:50 → C.EDA 14:35
DX: M54.5 Low back pain (principal); Z96.641 Presence of right artificial hip joint; Z98.890 Other specified postprocedural states; Z87.01 Personal history of pneumonia (recurrent); R73.03 Prediabetes; Z98.51 Tubal ligation status; Z72.0 Tobacco use; E66.9 Obesity, unspecified; Z68.41 Body mass index [BMI] 40.0-44.9, adult

== ENCOUNTER 2020-10-21 05:10 | Inpatient (IN) ==
--- NOTE | 2020-09-24 11:35 | PAT Medication Instructions ---
Medication Instructions Date of Service September 24, 2020 Home Medications acetaminophen [Tylenol] 325 - 650 mg PO QID PRN acetaminophen-pamabrom [Midol] 1 tab PO Q4H PRN DO NOT take the morning of surgery acetaminophen-pamabrom [Midol] 1 tab PO Q4H PRN Take morning of surgery With a small sip of water, OTHERWISE NOTHING TO EAT OR DRINK AFTER MIDNIGHT: acetaminophen [Tylenol] 325 - 650 mg PO QID PRN (okay to take up to 4 hours prior to surgery if needed) Take evening before surgery acetaminophen-pamabrom [Midol] 1 tab PO Q4H PRN (if needed) acetaminophen [Tylenol] 325 - 650 mg PO QID PRN (if needed) Other Notes If you have any questions please call us at [phone] or [phone] or [phone] or [phone]
--- NOTE | 2020-09-24 12:15 | Anesthesiology Consultation ---
Date of Service September 24, 2020 Assessment & Plan (1) Encounter for pre-operative examination: Chart Review Chart Review: Acceptable Risk for Surgery (pending surgeon ordered PCP clearance and preop Covid testing results ) and Patient seen in Pre Admission Testing Awaiting surgeon ordered PCP clearance 09/30 Pt has claustrophobia- oxygen masks cause significant anxiety and combativeness Pt states she is having cryoablation to right knee prior to surgery - Dr. Ryan PAT appointment 09/24/2020, patient denies any recent travel or large group activities. No known Covid infection in the past 90 days. Patient is not vaccinated for Covid. No known Covid positive contacts or Covid related symptoms Preop Covid testing scheduled 10/19/20= will await results. Educated on importance of self quarantining, social distancing and wearing mask in public both for the patient after Covid testing done Teaching & Discussion Pre-Anesthesia Teaching/Discussion Notes: Instructed NPO after midnight before surgery,except medications with 15 cc of water. Medication instructions provided according to the PAT guidelines. History Surgery Operation Date: 10/21/20 13:00 Proposed Procedures p Right Total Knee Arthroplasty - Adolfo Ryan, Height/Weight Height: 5 ft 5 in Weight: 124 kg Allergies Allergy/AdvReac Type Severity Reaction Status Date / Time hydrocodone Allergy Intermediate ITCHING Verified 09/24/20 07:37 all over body aspirin Allergy Mild NOSE BLEED Verified 09/24/20 07:37 oxycodone Allergy Unknown ITCHING Unverified 09/24/20 07:37 ALL OVER BODY Medications Home Medications Medication Instructions Recorded Confirmed Last Taken acetaminophen [Tylenol] 325 - 650 mg PO QID PRN 09/24/20 09/24/20 Unknown acetaminophen-pamabrom [Midol] 1 tab PO Q4H PRN 09/24/20 09/24/20 Unknown Past Medical History Medical History ADHD No medications at this time Claustrophobia Masks cause anxiety History of anemia History of anxiety History of depression Hx of migraines Neuropathy Bilateral LEs Osteoarthritis Rheumatoid arthritis Has never seen rheum -- states she was dx'ed with blood work Exercise / Class Metabolic Activity III < 4 Walking/Shop/Light housework (one flight of stairs - no chest pain, mild SOB ) Past Family History Family History Mother Family history of diabetes mellitus Brother Family history of diabetes mellitus Past Surgical History Surgical History Family history of reaction to anesthesia MOTHER>SLOW TO WAKE UP H/O sinus surgery H/O thumb surgery CYST REMOVED History of anesthesia reaction DIFFICULTY WAKING UP>TUBAL LIGATION History of bilateral tubal ligation History of cholecystectomy History of colonoscopy History of dilatation and curettage History of tooth extraction History of total hip arthroplasty RT/LEFT Past Anesthesia History No Hx of Anesthesia Complications (with exception to slow to wake- just groggy after BTL no reintubation or ICU stay; issues with being cold/shaking post op ) and No Family Hx of Anesthesia Complications (with exception to mother- slow to wake ) History of PONV History of PONV and Hx of Motion Sickness Social History Smoking Status: Current every day smoker tobacco type: cigarettes Smoking cigarettes per day: 5-7 CIG DAILY Do You Dip or Chew Tobacco: No Hx Alcohol Use: No substance use type: does not use Review of Systems Cough- secondary to post nasal drip- chronic and stable Patient denies chest pain, shortness of breath at rest,, reflux, cough, wheezing, palpitations. No hx of seizures, stroke, ND, apnea/snoring. No hx of blood clots or blood transfusions Physical Exam Vital Signs VITALS BP 134/75 P 69 TEMP 98.2 SP02 97% RESP 16 Constitutional no acute distress ENMT Mouth: no TMJ clicking Thyromental Distance: > or= 3.5 Finger Breadths (3.5) Mallampati Class: I Full dentures on top and bottom Neck + limited neck extension (mild ) Respiratory normal respiratory effort; no respiratory distress Auscultation: lungs clear to auscultation bilaterally; no wheezes Cardiovascular Rate/Rhythm: regular rate and regular rhythm Heart Sounds: no murmur Vessels: no carotid bruit Musculoskeletal Spine: no pain with cervical ROM Extremities: extremities normal to inspection Psychiatric Orientation: alert Lab Results Anesthesia Preop Results Results Anesthesia Widget: WBC 9.43 K/uL (4.8-10.8) 09/24/20 Hgb 14.1 g/dL (12.0-16.0) 09/24/20 Hct 43.1 % (37-47) 09/24/20 Plt 375 K/uL (130-400) 09/24/20 Na 140 mmol/L (136-145) 09/24/20 K 4.1 mmol/L (3.5-5.1) 09/24/20 Cl 110 mmol/L (98-107) H 09/24/20 CO2 28 mmol/L (21-32) 09/24/20 BUN 12 mg/dl (7-18) 09/24/20 Creat 0.64 mg/dl (0.6-1.2) 09/24/20 Glucose Level 87 mg/dl (70-99) 09/24/20 PT 9.9 Seconds (9.0-12.0) 09/24/20 PTT 25.9 Seconds (21.0-31.0) 09/24/20 INR 1.0 (0.9-1.1) 09/24/20 HA1c 5.9 % (4.5-5.6) H 09/24/20 Urine Color Yellow 09/24/20 Urine Appearance Clear (Clear) 09/24/20 Urine pH 5.5 (4.5-7.5) 09/24/20 Urine Specific [place] 1.009 (1.000-1.030) 09/24/20 Urine Protein Negative (Negative) 09/24/20 Urine Glucose (UA) Negative (Negative) 09/24/20 Urine Ketones Negative (Negative) 09/24/20 Urine Blood Negative (Negative) 09/24/20 Urine Nitrite Negative (Negative) 09/24/20 Urine Bilirubin Negative (Negative) 09/24/20 Urine Urobilinogen Negative (Negative) 09/24/20 Urine Leukocyte Esterase Negative (Negative) 09/24/20 Blood Type A Positive 09/24/20 Antibody Screen NEGATIVE 09/24/20 Testing Electrocardiogram Date: 09/24/20 Findings: + NSR @ (64bpm) Normal EKG per cardio. Chest X-Ray Date: 09/24/20 Findings: + NAD Cervical Spine Date: 09/24/20 No fracture or subluxation within the cervical spine. Evaluation is slightly limited because C7 vertebral bodies partially obscured by overlying patient's shoulder. Intervertebral disc space narrowing with anterior and posterior osteophytes are seen at the C4-C5, C5-C6 and C6-7 levels.
--- NOTE | 2020-10-14 11:34 | History & Physical Report ---
Date of Service October 14, 2020 date of surgery: 10/21/20 Procedure: Right Total Knee Arthroplasty Assessment & Plan (1) Arthritis of right knee: Plan: presents w/ increased pain in both of her knees, right greater than left. she has had prior visco injections without relief, takes PO NSAIDs as well. recently had Iovera tx by Dr Milan on her left knee and is scheduled for her right knee in 2 weeks for Iovera as well. we discussed options, her xrays show advan jonas DJD bone on bone changes osteophyte formation both knees. she would like to proceed with patient matched Right TKA at [facility]. she will have the Iovera treatment performed in 2 weeks for her upcoming surgery. The risks and benefits have been discussed including, but not limited to, risk of infection, nerve injury, stiffness, loss of motion, failure to improve, etc. Reasonable outcomes and options of treatment were discussed. An explanation of appropriate alternatives to the procedure that may be advantageous were discussed and their risks and benefits, as well as the risks and benefits of not proceeding with treatment. I offered to answer any additional inquiries concerning the treatment involved. All the patient's questions were answered. The patient is agreeable, understanding of the treatment plan and alternatives, and wishes to proceed with the treatment plan. History of Present Illness Chief Complaint: Right knee pain Primary Care Provider: Tyler Solomon Patient is a 60 year old female who complains of right knee pain, presents for pre-op evaluation prior to a right total knee replacement by Dr Ryan at [facility]. she complains of pain, crepitus and stiffness in her right knee. Currently the patient states that the symptoms are moderate-severe and rated as 7/10. The pain is described as aching, sharp and throbbing. The symptoms occur continuously and are aggravated by ascending stairs, daily activities, first steps while awake walking. Prior NSAIDs include IBU and Aleve, has allergies to hydrocodone and Oxycodone. Prior pain medications include Tylenol. she has been treated with previous cortisone and visco injections in the past without much relief as well as undergoing Iovera treatment. Allergies Allergy/AdvReac Type Severity Reaction Status Date / Time hydrocodone Allergy Intermediate ITCHING Verified 09/24/20 07:37 all over body aspirin Allergy Mild NOSE BLEED Verified 09/24/20 07:37 oxycodone Allergy Unknown ITCHING Unverified 09/24/20 07:37 ALL OVER BODY Home Medications Medication Instructions Recorded Confirmed Type acetaminophen 325 mg tablet 325 - 650 mg PO QID PRN 09/24/20 09/24/20 History (Tylenol) acetaminophen-pamabrom 500 mg-25 1 tab PO Q4H PRN 09/24/20 09/24/20 History mg tablet (Midol) Past Med/Surg History Medical History ADHD No medications at this time Claustrophobia Masks cause anxiety History of anemia History of anxiety History of depression Hx of migraines Neuropathy Bilateral LEs Osteoarthritis Rheumatoid arthritis Has never seen rheum -- states she was dx'ed with blood work Surgical History Family history of reaction to anesthesia MOTHER>SLOW TO WAKE UP H/O sinus surgery H/O thumb surgery CYST REMOVED History of anesthesia reaction DIFFICULTY WAKING UP>TUBAL LIGATION History of bilateral tubal ligation History of cholecystectomy History of colonoscopy History of dilatation and curettage History of tooth extraction History of total hip arthroplasty RT/LEFT Family History Mother Family history of diabetes mellitus Brother Family history of diabetes mellitus Social History Smoking Status: Current every day smoker Cigarettes Per Day: 5-7 CIG DAILY; Second Hand Exposure: Yes; Hx Alcohol Use: No 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: No Beliefs That Will Affect Care: None Current Living Situation: Alone Feels Safe at Home: Yes Assistive Devices: Denture - Upper, Denture - Lower and Glasses Review of Systems Review of Systems: All systems reviewed & are unremarkable except as noted in HPI & below Constitutional: no fever, no chills and no sweats Respiratory: no cough and no dyspnea Cardiovascular: no chest pain, no dyspnea and no orthopnea Gastrointestinal: no abdominal pain, no nausea and no vomiting Musculoskeletal: as per Subjective / HPI Physical Exam Physical Exam: HT: 5ft 5in WT: 124kg Constitutional: WD/WN, vitals as above no acute distress Respiratory: normal respiratory effort, lungs clear to auscultation no respiratory distress, no labored breathing and does not use accessory muscles Cardiovascular: RRR, no murmur, no edema Gastrointestinal (Abdomen): normal bowel sounds, soft, nontender, no hepatosplenomegaly Musculoskeletal: Knee: + knee abnormal to inspection (RIGHT KNEE), + effusion (+1 effusion), + limited ROM of knee (ROM 0/3/110), + knee ROM with crepitation, + joint line tenderness (medial joint line) and + Taisha's sign positive; no deformity, no skin erythema, no ecchymosis, no valgus laxity, no varus laxity, anterior drawer test negative, Lucia's sign negative and pivot shift test negative Results & Data Results & Data ([facility]) Diagnostic Findings Right Knee X-ray: Right knee series showing advanced degenerative changes to the right knee, tricompartmental degenerative changes, narrowing of the joint spaces with patellar spurring noted, osteophyte formation and subchondral sclerosis noted. slight lateral subluxation patella. no acute bony pathology noted.
[2020-10-21] MEDS ORDERED: LR 500ML BOLUS, THEN 15ML/HR IV SCH (06:00)
[2020-10-21] MEDS ORDERED: dexAMETHasone 4 MG TAB PO SCH (06:00)
[2020-10-21] MEDS ORDERED: TRANEXAMIC ACID 1,000 MG **IV Pre-op IV SCH (06:00)
[2020-10-21] MEDS ORDERED: TRANEXAMIC ACID 1,000 MG **IV Intra-op IV SCH (06:00)
[2020-10-21] MEDS ORDERED: GABAPENTIN 600 MG DOSE PO SCH (06:00)
[2020-10-21] MEDS ORDERED: Scopolamine 1 MG TDSY TD SCH (06:00)
[2020-10-21] MEDS ORDERED: ROPIVACAINE 0.5% HCL/PF 150 MG, BUPIVACAINE 0.75% MPF 20 ML, EPINEPHrine 30MG/30ML (OR ... INSTIL SCH (06:00)
[2020-10-21] MEDS ORDERED: METOCLOPRAMIDE HCL 10 MG TABLET PO SCH (06:00)
[2020-10-21] MEDS ORDERED: ACETAMINOPHEN 500 MG TAB PO SCH (06:00)
[2020-10-21] MEDS ORDERED: FAMOTIDINE 20 MG TAB PO SCH (06:00)
[2020-10-21] MEDS ORDERED: CeleBREX 200 MG CAP PO SCH (06:00)
[2020-10-21] MEDS ORDERED: BUPIVACAINE 0.5 % 5 MG/1 ML PF 10ML VIAL ONE (06:26)
[2020-10-21] MEDS ORDERED: BUPIVACAINE 0.25% 30 ML VIAL ONE (06:26)
[2020-10-21] MEDS ORDERED: fentaNYL citrate 100 MCG/2 ML VIAL ONE (06:54)
[2020-10-21] MEDS ORDERED: MIDAZOLAM HCL 1 MG/ML 2ML VIAL ONE (06:54)
--- NOTE | 2020-10-21 07:00 | History & Physical Bridge Note ---
Date of Service October 21, 2020 History & Physical Bridge Note I have examined the patient, reviewed the History & Physical and in the interval since the performance of the History & Physical I have noted the following changes of clinical significance: no changes noted
[2020-10-21] MEDS ORDERED: ORTHO JOINT ANESTHETIC ONE (07:04)
[2020-10-21] MEDS ORDERED: ATROPINE SULFATE 0.1 MG/ML 10ML SYR IV PRN (08:10)
[2020-10-21] MEDS ORDERED: ONDANSETRON INJ 2 MG/ML 2 ML VIAL IV PRN ×2 (08:10→11:25)
[2020-10-21] MEDS ORDERED: fentaNYL citrate 100 MCG/2 ML VIAL IV PRN (08:10)
[2020-10-21] MEDS ORDERED: ePHEDrine sulfate 50 MG/ML AMP IV PRN (08:10)
[2020-10-21] MEDS ORDERED: PROPOFOL IV EMULSION 10 MG/ML 20 ML VIAL IV ONE ×2 (09:12→09:25)
[2020-10-21] MEDS ORDERED: ePHEDrine sulfate 50 MG/ML AMP ONE (09:13)
--- NOTE | 2020-10-21 09:27 | Operative Report ---
Post Operative Report Pre & Post Diagnosis Operation Date: 10/21/20 07:45 Pre-Op Diagnosis: Osteoarthritis, Right Knee Post-Op Diagnosis: Osteoarthritis, Right Knee I identified the patient and participated in the time-out.: Yes Procedure Operation Date: 10/21/20 07:45 Actual Procedures p Right Total Knee Arthroplasty(Right) utilizing [employer] femur size 8 narrow tibia D polyethylene 10 medial constrained patella 28 oval- Adolfo Ryan DO Surgeon Adolfo Ryan DO Tag Press Operator Rito WHARTON Estimated Blood Loss 5 Findings Consistent with Post-Op Diagnosis Patient presents with severe end-stage DJD [id number] eburnated bone varus alignment flexion contracture 4 degrees moderate to large effusion subchondral cystic changes marginal osteophytes Specimens Bone and cartilage Drains Medium bore Hemovac Anesthesia Type MAC Epidural Regional Complications None Disposition Accompanied Patient To Recovery: No Disposition: Recovery Room Indications Patient presents for complaints of right knee pain failed attempted conservative management clinic physical therapy anti-inflammatories relative rest activity modification corticosteroid injection Description of Procedure After proper prepping and draping of the Right lower extremity anterior midline incision was made over the region of the extensor extensor mechanism after meticulous hemostasis was obtained and maintained in subcutaneous tissues a medial parapatellar incision was made The patella was subluxed lateralward the medial lateral gutter were cleaned from any hypertrophic synovitis and scar tissue of the distal femoral block was placed and the distal femoral osteotomy cut was made subsequently the chamfers anterior and posterior osteotomy cuts were made utilizing the 4-in-1 block the tibia was subsequently subluxed anteriorward medial and ateral meniscal remnants were excised in their entirety remnants of the anterior and posterior cruciate ligaments were excised in their entirety excellent exposure of the proximal tibia was obtained the tibial osteotomy guide was placed on the proximal tibial osteotomy cut was made once again the knee was irrigated with copious amounts of sterile saline solution the patella was subsequently everted lateralward thickened scar tissue around the patella was removed the patella was subsequently cut utilizing a freehand technique and was drilled prepared for final preparation and placement of patella socially flexion-extension gaps were checked and the equal and symmetric trials were placed to the appropriate femoral and tibial trials with poly-spacer being placed for equal flexion and extension gaps and full range of motion including extension to 0 and flexion to 140 the trial components after having been taken to recovery range of motion was subsequently removed meticulous hemostasis was obtained and maintained subsequently a knee block injection of joint cocktail including ropivacaine 0.5% 150 mg. Bupivacaine 0.5% epinephrine 1-200,030 mL's toradol 30 mg dexamethasone 4 mg ketamine 10 mg clonidine 100 micrograms normal saline solution 30 mg was infiltrated into the soft tissues of the posterior knee medial lateral gutters and periosteal synovium special attention was paid to protect neurovascular structures at all times subsequently trial components having been removed the knee was irrigated with sterile saline solution. debris was removed the proximal tibia was subsequently prepared and was made ready for the placement of the tibial component tibial component was also cemented and tamped into position the femoral component was subsequently placed and cemented in the position the patellar component was subsequently cemented in position because hemostasis once again obtained and maintained wound having been thoroughly irrigated with debridement and debridement lavage was performed as well as a medial parapatellar incision closed with #1 Vicryl in interrupted fashion subcutaneous was closed with #2 Vicryl skin was closed with skin clips. PA-C was necessary for prepping and drapping as well as wound closure of deep fascia Sub cutaneous tissue and skin and was necessary for the case. A sterile compressive dressing was placed patient was taken to recovery in stable condition of report dictated by Connor I attest to the content of the Intraoperative Record and any orders documented therein. Any exceptions are noted below. I attest to the content of the Intraoperative Record and any orders documented therein. Any exceptions are noted below.
[2020-10-21] MEDS ORDERED: diphenhydrAMINE 50 MG/ML VIAL IV PRN (10:22)
--- NOTE | 2020-10-21 10:56 | XRay Report ---
XR knee RT 1 or 2V routine CLINICAL HISTORY: Postoperative evaluation. COMPARISON: None FINDINGS: Alignment of the total right knee arthroplasty is anatomic. There is no periprosthetic fra cture or unexpected radiopaque foreign body. There are surgical drains. IMPRESSION: Expected findings following total right knee arthroplasty. ACT 112: Negative or not required by law. Electronically signed by: Alfredo Campo M.D. 10/21/2020 10:55 AM
[2020-10-21] MEDS ORDERED: NALOXONE HCL 0.4 MG/1 ML VIAL/CARP IV PRN (11:25)
[2020-10-21] MEDS ORDERED: MAGNESIUM HYDROXIDE SUSP 30 ML UDC PO PRN (11:25)
[2020-10-21] MEDS ORDERED: ALUMINUM/MAGNESIUM SUSP 30 ML UDC PO PRN (11:25)
[2020-10-21] MEDS ORDERED: bisacodyL 10 MG SUPP PR PRN (11:25)
[2020-10-21] MEDS ORDERED: HYDROmorphone INJ 0.5 MG/0.5 ML SYR IV PRN (11:25)
--- NOTE | 2020-10-21 11:43 | Anesthesiology Progress Note ---
Date of Service October 21, 2020 Anesthesia Post Procedure Vital Signs Vital Signs: Temp Pulse Resp BP Pulse Ox 10/21/20 10:39 36.9 C 65 18 116/58 L 99 10/21/20 10:30 64 18 106/56 L 99 10/21/20 10:20 37.2 C 74 18 99/55 L 99 10/21/20 10:11 37.2 C 68 20 94/57 L 98 10/21/20 05:51 36.7 C 67 20 148/83 H 96 Transfer of Care Handoff Completed per policy Notes Mental Status: alert / awake / arousable and participated in evaluation Nausea / Vomiting: adequately controlled Pain: adequately controlled Airway Patency, RR, SpO2: stable & adequate BP & HR: stable & adequate Hydration State: stable & adequate Neuraxial Anesthesia: was administered and sensory block is resolving Anesthetic Complications: no major complications apparent and Pt Satisfied with anesthetic care
[2020-10-21] MEDS: KETOROLAC 30 MG/ML VIAL IV SCH ×2 (13:13→17:50)
[2020-10-21] MEDS: SODIUM CHLORIDE 0.9% 1000ML 1,000 ML IV SCH (14:05)
[2020-10-21] MEDS: ACETAMINOPHEN 500 MG TAB PO SCH ×2 (14:38→20:42)
[2020-10-21] MEDS ORDERED: Scopolamine CHECK PATCH PLACEMENT SCH (16:00)
[2020-10-21] MEDS: ceFAZolin 2000MG 2,000 MG/15 ML SYR IV SCH (17:49)
[2020-10-21] MEDS: DOCUSATE SODIUM 100 MG CAP PO SCH (20:43)
[2020-10-21] MEDS ORDERED: SENNA 8.6 MG TAB PO SCH (21:00)
[2020-10-21] MEDS: TAPENTADOL HCL 50 MG TAB PO PRN (23:31)
[2020-10-22] MEDS: KETOROLAC 30 MG/ML VIAL IV SCH ×4 (00:20→11:28)
[2020-10-22] MEDS: ceFAZolin 2000MG 2,000 MG/15 ML SYR IV SCH (00:20)
[2020-10-22] MEDS: SODIUM CHLORIDE 0.9% 1000ML 1,000 ML IV SCH (00:44)
[2020-10-22] MEDS: ACETAMINOPHEN 500 MG TAB PO SCH ×2 (05:45→13:21)
[2020-10-22 06:13] LABS: Hematocrit (blood only) 39.2 % (37-47); Hemoglobin 12.8 g/dL (12.0-16.0); Mean Corpuscular Hemoglobin 30.6 pg (25-34); Mean Corpuscular Hgb Conc 32.7 g/dL (32-36); Mean Corpuscular Volume 93.8 fL (80-100); Mean Platelet Volume 9.8 fL (7.4-10.4); Platelet Count 327 K/uL (130-400); RDW Coefficient of Variation 13.9 % (11.5-14.5); RDW Standard Deviation 47.8 fL (36.4-46.3); Red Blood Count 4.18 M/uL (4.2-5.4); White Blood Count 18.43 K/uL (4.8-10.8)
[2020-10-22 06:47] LABS: BUN Creatinine Ratio 18.3 (10-20); Creatinine Clr Calc Pharmacy 97.7 ml/min; Est GFR (Non-African American) 80.2 ml/min; Potassium 4.1 mmol/L (3.5-5.1)
[2020-10-22] MEDS: DOCUSATE SODIUM 100 MG CAP PO SCH (07:48)
[2020-10-22] MEDS: TAPENTADOL HCL 50 MG TAB PO PRN ×2 (07:53→13:16)
--- NOTE | 2020-10-22 08:58 | Orthopedic Progress Note ---
Date of Service October 22, 2020 Assessment & Plan (1) Arthritis of right knee: Plan: Postop day 1 status post right total knee arthroplasty PT/OT protocols. Weightbearing as tolerated. DVT prophylaxis-rivaroxaban, SCDs, ARYAN kimball. Pain management as written. DC planning-patient is planning for home health services upon discharge. Admission and Anticipated Discharge Date Admission Date: October 21, 2020 Supervising Physician Co-Signing Physician Notes Patient seen and examined. Agree with DIO Sánchez's note as above. Patient is doing very well. Denies significant pain in the knee. She is mobilizing well and ready for discharge to home. Subjective Postop day 1 Patient sitting up in bed awake and alert. States she is having some pain this morning but is tolerating well. We discussed her pain medication regimen. Patient states that many medications make her itchy. She also states that she gets nosebleeds from Tylenol and aspirin. She likes the Toradol but understands that she will not be taking this at home. She discussed that she was going to take Motrin at home however we decided that this would be only in dire need and or sporadically since she would be taking rivaroxaban at home as well. She is agreeable to try the pain medication prescribed for her currently. No other complaints at this time. She is hoping to go home today. Physical Exam Physical Exam: Dressings are intact. She has some mild bloody drainage around the drain itself. The rest of the dressing is clean and dry. Calves are soft and nontender. Neurovascular is intact. Toes are mobile. She states that nursing had said she drained about 50 mL from the previous shift with her Hemovac. Results & Data ([facility]) Vital Signs (Past 12 Hours) Vital Signs Temp Pulse Resp BP Pulse Ox 10/22/20 08:14 36.7 C 64 18 126/68 97 10/22/20 03:00 36.7 C 64 18 138/73 94 10/21/20 23:05 36.9 C 62 18 148/75 H 93 Laboratory Results Laboratory Results WBC 18.43 K/uL (4.8-10.8) H 10/22/20 05:52 RBC 4.18 M/uL (4.2-5.4) L 10/22/20 05:52 Hgb 12.8 g/dL (12.0-16.0) 10/22/20 05:52 Hct 39.2 % (37-47) 10/22/20 05:52 MCV 93.8 fL (80-100) 10/22/20 05:52 MCH 30.6 pg (25-34) 10/22/20 05:52 MCHC 32.7 g/dL (32-36) 10/22/20 05:52 RDW Std Deviation 47.8 fL (36.4-46.3) H 10/22/20 05:52 RDW Coeff of Joselyn 13.9 % (11.5-14.5) 10/22/20 05:52 Plt Count 327 K/uL (130-400) 10/22/20 05:52 MPV 9.8 fL (7.4-10.4) 10/22/20 05:52 Sodium 138 mmol/L (136-145) 10/22/20 05:52 Potassium 4.1 mmol/L (3.5-5.1) 10/22/20 05:52 Chloride 110 mmol/L (98-107) H 10/22/20 05:52 Carbon Dioxide 25 mmol/L (21-32) 10/22/20 05:52 Anion Gap 3.0 (3-11) 10/22/20 05:52 BUN 14 mg/dl (7-18) 10/22/20 05:52 Creatinine 0.79 mg/dl (0.6-1.2) 10/22/20 05:52 Est Cr Clr Drug Dosing 97.7 ml/min 10/22/20 05:52 Est GFR ( Amer) 93.0 ml/min 10/22/20 05:52 Est GFR (Non-Af Amer) 80.2 ml/min 10/22/20 05:52 BUN/Creatinine Ratio 18.3 (10-20) 10/22/20 05:52 Glucose 144 mg/dl (70-99) H 10/22/20 05:52 Calcium 9.0 mg/dl (8.5-10.1) 10/22/20 05:52 COVID-19 Eval Order Covid19 [facility]Now [facility] 10/21/20 05:24 SARS-CoV-2, RNA, NAAT NEGATIVE (NEGATIVE) 10/21/20 05:24 Impressions Knee X-Ray 10/21/20 10:21 XR knee RT 1 or 2V routine CLINICAL HISTORY: Postoperative evaluation. COMPARISON: None FINDINGS: Alignment of the total right knee arthroplasty is anatomic. There is no periprosthetic fracture or unexpected radiopaque foreign body. There are surgical drains. IMPRESSION: Expected findings following total right knee arthroplasty. ACT 112: Negative or not required by law. Electronically signed by: Alfredo Campo M.D. 10/21/2020 10:55 AM
[2020-10-22] MEDS ORDERED: RIVAROXABAN 10 MG TABLET PO SCH (09:00)
[2020-10-22] MEDS ORDERED: MULTIVITAMIN TAB PO SCH (09:00)
--- NOTE | 2020-10-26 10:19 | Discharge Summary ---
Date of Service October 26, 2020 Admission HPI Per Admitting Provider Patient is a 60 year old female who complains of right knee pain, presents for pre-op evaluation prior to a right total knee replacement by Dr Ryan at [facility]. she complains of pain, crepitus and stiffness in her right knee. Currently the patient states that the symptoms are moderate-severe and rated as 7/10. The pain is described as aching, sharp and throbbing. The symptoms occur continuously and are aggravated by ascending stairs, daily activities, first steps while awake walking. Prior NSAIDs include IBU and Aleve, has allergies to hydrocodone and Oxycodone. Prior pain medications include Tylenol. she has been treated with previous cortisone and visco injections in the past without much relief as well as undergoing Iovera treatment. Admission Exam Per Admitting Provider Physical Exam: HT: 5ft 5in WT: 124kg Constitutional: WD/WN, vitals as above no acute distress Respiratory: normal respiratory effort, lungs clear to auscultation no respiratory distress, no labored breathing and does not use accessory muscles Cardiovascular: RRR, no murmur, no edema Gastrointestinal (Abdomen): normal bowel sounds, soft, nontender, no hepatosplenomegaly Musculoskeletal: Knee: + knee abnormal to inspection (RIGHT KNEE), + effusion (+1 effusion), + limited ROM of knee (ROM 0/3/110), + knee ROM with crepitation, + joint line tenderness (medial joint line) and + Taisha's sign positive; no deformity, no skin erythema, no ecchymosis, no valgus laxity, no varus laxity, anterior drawer test negative, Lucia's sign negative and pivot shift test negative Principal Diagnosis Right Knee Osteoarthritis Discharge Data Allergies Allergy/AdvReac Type Severity Reaction Status Date / Time hydrocodone Allergy Intermediate ITCHING Verified 10/21/20 05:33 all over body aspirin Allergy Mild NOSE BLEED Verified 10/21/20 05:33 oxycodone Allergy Unknown ITCHING Verified 10/21/20 05:33 ALL OVER BODY Procedures Performed Operation Date: 10/21/20 07:45 Actual Procedures p Right Total Knee Arthroplasty(Right) - Adolfo Ryan DO Ordered Studies 10/21/20 05:00 US - OR guided needle placemen Routine Hospital Course (1) Arthritis of right knee: Date of Service October 22, 2020 Assessment & Plan (1) Arthritis of right knee: Plan: Postop day 1 status post right total knee arthroplasty PT/OT protocols. Weightbearing as tolerated. DVT prophylaxis-rivaroxaban, SCDs, ARYAN kimball. Pain management as written. DC planning-patient is planning for home health services upon discharge. Admission and Anticipated Discharge Date Admission Date: October 21, 2020 Supervising Physician Co-Signing Physician Notes Patient seen and examined. Agree with DIO Sánchez's note as above. Patient is doing very well. Denies significant pain in the knee. She is mobilizing well and ready for discharge to home. Subjective Postop day 1 Patient sitting up in bed awake and alert. States she is having some pain this morning but is tolerating well. We discussed her pain medication regimen. Patient states that many medications make her itchy. She also states that she gets nosebleeds from Tylenol and aspirin. She likes the Toradol but understands that she will not be taking this at home. She discussed that she was going to take Motrin at home however we decided that this would be only in dire need and or sporadically since she would be taking rivaroxaban at home as well. She is agreeable to try the pain medication prescribed for her currently. No other complaints at this time. She is hoping to go home today. Physical Exam Physical Exam: Dressings are intact. She has some mild bloody drainage around the drain itself. The rest of the dressing is clean and dry. Calves are soft and nontender. Neurovascular is intact. Toes are mobile. She states that nursing had said she drained about 50 mL from the previous shift with her Hemovac. Results & Data ([facility]) Vital Signs (Past 12 Hours) Vital Signs Temp Pulse Resp BP Pulse Ox 10/22/20 08:14 36.7 C 64 18 126/68 97 10/22/20 03:00 36.7 C 64 18 138/73 94 10/21/20 23:05 36.9 C 62 18 148/75 H 93 Laboratory Results Laboratory Results WBC 18.43 K/uL (4.8-10.8) H 10/22/20 05:52 RBC 4.18 M/uL (4.2-5.4) L 10/22/20 05:52 Hgb 12.8 g/dL (12.0-16.0) 10/22/20 05:52 Hct 39.2 % (37-47) 10/22/20 05:52 MCV 93.8 fL (80-100) 10/22/20 05:52 MCH 30.6 pg (25-34) 10/22/20 05:52 MCHC 32.7 g/dL (32-36) 10/22/20 05:52 RDW Std Deviation 47.8 fL (36.4-46.3) H 10/22/20 05:52 RDW Coeff of Joselyn 13.9 % (11.5-14.5) 10/22/20 05:52 Plt Count 327 K/uL (130-400) 10/22/20 05:52 MPV 9.8 fL (7.4-10.4) 10/22/20 05:52 Sodium 138 mmol/L (136-145) 10/22/20 05:52 Potassium 4.1 mmol/L (3.5-5.1) 10/22/20 05:52 Chloride 110 mmol/L (98-107) H 10/22/20 05:52 Carbon Dioxide 25 mmol/L (21-32) 10/22/20 05:52 Anion Gap 3.0 (3-11) 10/22/20 05:52 BUN 14 mg/dl (7-18) 10/22/20 05:52 Creatinine 0.79 mg/dl (0.6-1.2) 10/22/20 05:52 Est Cr Clr Drug Dosing 97.7 ml/min 10/22/20 05:52 Est GFR ( Amer) 93.0 ml/min 10/22/20 05:52 Est GFR (Non-Af Amer) 80.2 ml/min 10/22/20 05:52 BUN/Creatinine Ratio 18.3 (10-20) 10/22/20 05:52 Glucose 144 mg/dl (70-99) H 10/22/20 05:52 Calcium 9.0 mg/dl (8.5-10.1) 10/22/20 05:52 COVID-19 Eval Order Covid19 IDNow atMMNC 10/21/20 05:24 SARS-CoV-2, RNA, NAAT NEGATIVE (NEGATIVE) 10/21/20 05:24 Impressions Knee X-Ray 10/21/20 10:21 XR knee RT 1 or 2V routine CLINICAL HISTORY: Postoperative evaluation. COMPARISON: None FINDINGS: Alignment of the total right knee arthroplasty is anatomic. There is no periprosthetic fracture or unexpected radiopaque foreign body. There are surgical drains. IMPRESSION: Expected findings following total right knee arthroplasty. Total Time Total Time Spent Total Time Spent (In Minutes): 5 Discharge Plan Discharge Items Patient Disposition: Home - Home Health Services Reason For Visit: Osteoarthritis, Right Knee Discharge Diagnosis: Right knee osteoarthritis Activity: Per Instructions section Weightbearing: Right weightbearing Weightbearing Comment: As tolerated with a walker Non-emergency contact: Surgeon Call non-emergency contact if: you have any medication questions, your pain is not controlled, your temperature is above 101.5, your wound has increased redness and your wound has increased drainage Follow-up/Referrals: Luis Cornelius D.O. [Primary Care Provider] - Diet: Regular Addtl Attending Provider Instructions: Please try and take your pain medications that have been prescribed for you instead of ibuprofen. You may have the ibuprofen on a limited basis but not regularly. SEE NOTE BELOW ABOUT TAKING RIVAROXIBAN (XARELTO) BLOOD THINNING MEDICATION. ACTIVITY RECOMMENDATIONS: SELF CARE INSTRUCTIONS AFTER TOTAL KNEE REPLACEMENT A. You may need to continue a physical therapy program after discharge from the hospital. There are several options available to you. Your doctor will assist you in selecting the best one for you. 1. An out-patient facility 2 to 3 times a week for therapy or home therapy. 2. Continue working on all exercises taught to you in the hospital. Your goals should be to increase bending of your knee to 90 degrees and beyond and to fully straighten your knee. B. You may progress at your own pace from walking with a walker or crutches to a cane; then to no assistive devices. C. Make walking a part of your daily routine. Be up as much as comfortable with rest periods throughout the day. Rest with leg elevation is very important. Use the ice wrap frequently for the first 3-4 weeks. D. There are no restrictions on activities. You may ride in a car, shop, par ticipate in radio program checker and all social activities. E. Wear the long elastic stockings (ARYAN hose) 20 hours a day for 2 weeks after surgery. They can be removed several times a day for laundering and for a bath. F. You may shower, no tub baths until cleared by your doctor. SPECIAL CARE INSTRUCTIONS: VERY IMPORTANT TO READ AND REVIEW A. There are a few signs you need to watch for after you are home. Call [facility] if you notice any of the followin. Increased severe knee pain. Some pain is expected especially when you exercise. 2. Increased swelling in your leg or knee; pain or swelling of the calf muscle in either lower leg. 3. Any fluid drainage from the incision. 4. Shortness of breath or chest pain. B. Please call [facility] at if you have any concerns or questions about your operation or recovery. The doctor or his nurse will return your call promptly. C. You must take antibiotics before dental work, bladder, bowel or other surgery. Your doctor will provide you with a permanent care to carry describing this precaution. IMPORTANT: * YOU WILL BE TAKING RIVAROXIBAN (XARELTO) DAILY PROPHYLAXIS AGAINST BLOOD CLOTS. IF YOU BEGIN HAVING NOSE BLEEDS, STOMACH PAIN, INCREASED SWELLING IN THE KNEE, INCREASED BRUISING, PLEASE CALL OUR OFFICE IMMEDIATELY. [phone] * HIGH RISK PATIENTS MAY BE PRESCRIBED A STRONGER BLOOD THINNER. THIS WILL BE PROVIDED AT DISCHARGE. * CALL IF INCREASED PAIN, REDNESS, DRAINAGE OR FEVER GREATER THAT 101. * WEAR ARYAN HOSE 20 HOURS PER DAY FOR 2 WEEKS. * Change your dressing daily. Keep your wound covered until seen back in the office. * DERMABOND Prineo- This is a mesh tape dressing that is covered with glue. It should remain in place until the incision is properly healed, usually 10-14 days. This dressing is designed to naturally slough off. You may trim the excess mesh tape as it peels off. Incision may be briefly wet in a shower. Dry immediately by blotting with a clean, dry towel. Do not bath or swim until instructed by your doctor. Do not scratch, rub, or pick at the dressing. Do not apply any topical ointments or lotions until dressing is completely removed and/or instructed by your doctor. There may be a small piece of suture material at one end of your incision. Do not pull or trim this. If it is bothersome or catching on clothing, you may cover it with a band-aid. Call the office with any wound questions . FOLLOW UP VISIT: If appointment is not already scheduled: Please call [facility] to make a follow-up appointment for 2 weeks after your surgery at . Pending Studies at Discharge: No Stand-Alone Forms: My [facility], Opioid Pain Management, Smoking Cessation Medications and DC Order Prescriptions: New acetaminophen [Tylenol Extra Strength] 500 mg Tablet 1,000 mg PO Q8 PRN (Reason: pain) 14 Days Qty: 84 RF: 0 Xarelto 10 mg Tablet 10 mg PO DAILY Qty: 29 RF: 0 Nucynta 50 mg Tablet 50 - 100 mg PO Q4H PRN (Reason: pain) Qty: 36 RF: 0 diphenhydramine HCl [Benadryl] 25 mg capsule 25 mg PO Q6H PRN (Reason: itching) Qty: 20 RF: 0 Discontinued acetaminophen [Tylenol] 325 mg Tablet 325 - 650 mg PO QID PRN (Reason: Pain) RF: 0 ibuprofen [Motrin] 800 mg Tablet 800 mg PO Q8H PRN (Reason: Pain) RF: 0 Discharge Orders: Discharge Order (Routine); Ordered 10/22/20 Ordered By: Rito Funk/Other Patient Handouts: DVT Post Op Prevention Admission Data Admit Date/Time: 10/21/20 10:21 Attending Provider: Adolfo Ryan Admit Provider: Adolfo Ryan Primary Care Provider: Luis Cornelius Other Interventions: Discharge Summary Assessment (RN) Last Done: 10/22/20 11:42
== END 2020-10-22 15:12 | disposition home health service (06) | DRG 470 ==
LOC: ASU 05:10 → 3E 05:10 → OBSVTOIN 10:21

== ENCOUNTER 2021-08-18 07:01 | Observation (INO) ==
--- NOTE | 2021-06-02 07:57 | History & Physical Report ---
Date of Service June 02, 2021 date of surgery: 06/23/21 Procedure: Left Total Knee Arthroplasty Surgeon: Adolfo Ryan Assessment & Plan (1) Arthritis of knee, left: Plan: presents w/ pain in her left knee, is s/p right total knee replacement, and has recovered well enough that she would like to proceed with left total knee replacement. she has had prior visco injections without relief, takes PO NSAIDs as well. recently had Iovera tx by Dr Milan on her left knee as well. We discussed options, her xrays show advanced DJD bone on bone changes osteophyte formation. she would like to proceed with patient matched Left TKA at [facility]. The risks and benefits have been discussed including, but not limited to, risk of infection, nerve injury, stiffness, loss of motion, failure to improve, etc. Reasonable outcomes and options of treatment were discussed. An explanation of appropriate alternatives to the procedure that may be advantageous were discussed and their risks and benefits, as well as the risks and benefits of not proceeding with treatment. I offered to answer any additional inquiries concerning the treatment involved. All the patient's questions were answered. The patient is agreeable, understanding of the treatment plan and alternatives, and wishes to proceed with the treatment plan. History of Present Illness Chief Complaint: left knee pain Primary Care Provider: Luis Cornelius Patient is a 61 year old female who complains of left knee pain, presents for pre-op evaluation prior to a left total knee replacement by Dr Ryan at [facility]. she complains of pain, crepitus and stiffness in her left knee. Currently the patient states that the symptoms are moderate-severe and rated as 6/10. The pain is described as aching, sharp and throbbing. The symptoms occur continuously and are aggravated by ascending stairs, daily activities, first steps while awake walking. Prior NSAIDs include IBU and Aleve, has allergies to hydrocodone and Oxycodone. Prior pain medications include Tylenol. she has been treated with previous cortisone and visco injections in the past without much relief as well as Iovera treatment. she recently underwent right tka and has recovered well enough that she would like to proceed with left TKA. Allergies Allergy/AdvReac Type Severity Reaction Status Date / Time hydrocodone Allergy Intermediate Diffuse Verified 11/25/20 09:22 itching oxycodone Allergy Intermediate Diffuse Verified 11/25/20 09:22 itching triamcinolone Allergy Intermediate Blistering Verified 11/25/20 09:22 aspirin AdvReac Mild Nose bleed Verified 11/25/20 09:22 Home Medications Medication Instructions Recorded Confirmed Type ibuprofen 200 mg tablet 1,000 mg PO HS 11/24/20 11/24/20 History Past Med/Surg History Medical History ADHD No medications at this time Ankle pain Right Claustrophobia Masks cause anxiety History of anemia History of anxiety History of depression Hx of migraines Morbid obesity Neuropathy Bilateral LEs Osteoarthritis Rheumatoid arthritis Blood work consistent, no rheumatology evaluation Surgical History Family history of reaction to anesthesia Mother > "slow to wake" H/O sinus surgery H/O thumb surgery CYST REMOVED History of anesthesia reaction "Slow to wake" with TL History of bilateral tubal ligation History of cholecystectomy History of colonoscopy History of dilatation and curettage History of tooth extraction History of total hip arthroplasty RT/LEFT History of total knee replacement Right TKA (10/21/20): SAB at L2/L3 (x3 attempts) + PNB at [facility] Family History Mother Family history of diabetes mellitus Brother Family history of diabetes mellitus Social History Smoking Status: Current every day smoker Cigarettes Per Day: 10 CIG DAILY; Second Hand Exposure: Yes; Hx Alcohol Use: No Preferred Language: Ukrainian Communication Ability: Effective Guyline Operator Required: No Beliefs That Will Affect Care: None marital status: Single Current Living Situation: Alone Feels Safe at Home: Yes Assistive Devices: Cane, Denture - Upper and Denture - Lower Review of Systems Review of Systems: All systems reviewed & are unremarkable except as noted in HPI & below Constitutional: no fever, no chills and no sweats Respiratory: no cough and no dyspnea Cardiovascular: no chest pain, no dyspnea and no orthopnea Gastrointestinal: no abdominal pain, no nausea and no vomiting Musculoskeletal: as per Subjective / HPI Physical Exam Physical Exam: HT: 5ft 5in WT: 124kg Constitutional: WD/WN, vitals as above no acute distress Respiratory: normal respiratory effort, lungs clear to auscultation no respiratory distress, no labored breathing and does not use accessory muscles Cardiovascular: RRR, no murmur, no edema Gastrointestinal (Abdomen): normal bowel sounds, soft, nontender, no hepatosplenomegaly Musculoskeletal: Knee: + knee abnormal to inspection (LEFT KNEE), + effusion (+1 effusion), + limited ROM of knee (ROM 0/3/110), + knee ROM with crepitation, + joint line tenderness (medial joint line) and + Taisha's sign positive; no deformity, no skin erythema, no ecchymosis, no valgus laxity, no varus laxity, anterior drawer test negative, Lucia's sign negative and pivot shift test negative Results & Data Results & Data ([facility]) Diagnostic Findings Left Knee X-ray: left knee series confirm advanced degenerative changes to the left knee, greatest medial compartments and patellofemoral joint, showing joint space narrowing, osteophyte formation and subchondral sclerosis. no acute bony pathology noted.
--- NOTE | 2021-06-21 09:49 | Anesthesiology Consultation ---
Date of Service June 21, 2021 Assessment & Plan (1) Encounter for pre-operative examination: - COVID screening: Per assessment on 06/18: No known COVID-19 positive contacts or current COVID-19 related symptoms. Travel screen negative. Surgeon arranging p reop COVID testing. Awaiting results. -Anesthesia addendum(10/21/20 prior to Right TKA): "Pt denies a bleeding disorder, but does report a sensitivity to aspirin. States that she has been tested for bleeding disorder without having anything identified. Pt had a nerve ablation done on the right side for knee pain and also has a history of peripheral lower extremity neuropathy. Pt denies weakness in the legs. Pt ok with plan to proceed with nerve block and spinal." -S/P Right TKA (10/21/20): SAB at L2/L3 (x3 attempts) + PNB at [facility] Chart Review Chart Review: Acceptable Risk for Surgery and Patient NOT seen in Pre Admission Testing History Surgery Operation Date: 06/23/21 12:05 Proposed Procedures p Left Total Knee Arthroplasty - Adolfo Ryan DO Height/Weight Height: 5 ft 5 in Weight: 131.088 kg Allergies Allergy/AdvReac Type Severity Reaction Status Date / Time hydrocodone Allergy Intermediate Diffuse Verified 06/18/21 09:03 itching oxycodone Allergy Intermediate Diffuse Verified 06/18/21 09:03 itching triamcinolone Allergy Intermediate Blistering Verified 06/18/21 09:03 aspirin AdvReac Mild Nose bleed Verified 06/18/21 09:03 Medications Home Medications Medication Instructions Recorded Confirmed Last Taken ibuprofen 200 mg tablet 1,000 mg PO HS PRN 11/24/20 06/18/21 Unknown Past Medical History Medical History (Updated 06/18/21 @ 09:21 by Oksana Reaves RN) ADHD No medications at this time Ankle pain Right Claustrophobia Masks cause anxiety History of anemia History of anxiety History of depression no meds at present Hx of migraines Morbid obesity Neuropathy Bilateral LEs Osteoarthritis Rheumatoid arthritis Blood work consistent, no rheumatology evaluation Past Family History Family History Mother Family history of diabetes mellitus Brother Family history of diabetes mellitus Past Surgical History Surgical History Family history of reaction to anesthesia Mother > "slow to wake" H/O sinus surgery H/O thumb surgery CYST REMOVED History of anesthesia reaction "Slow to wake" with TL History of bilateral tubal ligation History of cholecystectomy History of colonoscopy History of dilatation and curettage History of tooth extraction History of total hip arthroplasty RT/LEFT History of total knee replacement Right TKA (10/21/20): SAB at L2/L3 (x3 attempts) + PNB at [facility] Social History Smoking Status: Current every day smoker tobacco type: cigarettes Smoking cigarettes per day: 5-6 cigs per day Do You Dip or Chew Tobacco: No Hx Alcohol Use: No Hx Substance Use: No substance use type: does not use Testing Laboratory Results 05/31/21 WBC 8.05 H/H 13.5/42.4 PLATELETS 318 SODIUM 141 POTASSIUM 4.1 CHLORIDE 110 CO2 26.0 BUN 16.5 CREATININE 0.69 GLUCOSE 116 Electrocardiogram Date: 06/11/21 SR at 76bpm. "Normal" ECG. Chest X-Ray Date: 06/11/21 Findings: + NAD Stress Test Date: 05/05/15 Type:nuclear (Lexiscan) Severe nausea during infusion. ECG shows significant artifact, immediately on recovery. No significant ST depression or elevation. Normal perfusion study. LVEF 64%. Other Testing Cervical Spine Date:09/24/20 No fracture or subluxation within the cervical spine. Evaluation is slightly limited because C7 vertebral bodies partially obscured by overlying patient's shoulder. Intervertebral disc space narrowing with anterior and posterior osteophytes are seen at the C4-C5, C5-C6 and C6-7 levels.
--- NOTE | 2021-08-02 08:00 | History & Physical Report ---
Date of Service August 02, 2021 date of surgery: 08/18/21 Procedure: Left Total Knee Arthroplasty Surgeon: Adolfo Ryan Assessment & Plan (1) Arthritis of knee, left: Plan: presents w/ pain in her left knee, is s/p right total knee replacement, and has recovered well enough that she would like to proceed with left total knee replacement. she has had prior visco injections without relief, takes PO NSAIDs as well. recently had Iovera tx by Dr Milan on her left knee as well. We discussed options, her xrays show advanced DJD bone on bone changes osteophyte formation. she would like to proceed with patient matched Left TKA at [facility]. The risks and benefits have been discussed including, but not limited to, risk of infection, nerve injury, stiffness, loss of motion, failure to improve, etc. Reasonable outcomes and options of treatment were discussed. An explanation of appropriate alternatives to the procedure that may be advantageous were discussed and their risks and benefits, as well as the risks and benefits of not proceeding with treatment. I offered to answer any additional inquiries concerning the treatment involved. All the patient's questions were answered. The patient is agreeable, understanding of the treatment plan and alternatives, and wishes to proceed with the treatment plan. History of Present Illness Chief Complaint: Left knee pain Primary Care Provider: Luis Cornelius Patient is a 61 year old female who complains of left knee pain, presents for pre-op evaluation prior to a left total knee replacement by Dr Ryan at [facility]. she complains of pain, crepitus and stiffness in her left knee. Currently the patient states that the symptoms are moderate-severe and rated as 6/10. The pain is described as aching, sharp and throbbing. The symptoms occur continuously and are aggravated by ascending stairs, daily activities, first steps while awake walking. Prior NSAIDs include IBU and Aleve, has allergies to hydrocodone and Oxycodone. Prior pain medications include Tylenol. she has been treated with previous cortisone and visco injections in the past without much relief as well as Iovera treatment. she recently underwent right tka and has recovered well enough that she would like to proceed with left TKA. Allergies Allergy/AdvReac Type Severity Reaction Status Date / Time hydrocodone Allergy Intermediate Diffuse Verified 06/18/21 09:03 itching oxycodone Allergy Intermediate Diffuse Verified 06/18/21 09:03 itching triamcinolone Allergy Intermediate Blistering Verified 06/18/21 09:03 aspirin AdvReac Mild Nose bleed Verified 06/18/21 09:03 Home Medications Medication Instructions Recorded Confirmed Type ibuprofen 200 mg tablet 1,000 mg PO HS PRN 11/24/20 06/18/21 History Past Med/Surg History Medical History ADHD No medications at this time Ankle pain Right Claustrophobia Masks cause anxiety History of anemia History of anxiety History of depression no meds at present Hx of migraines Morbid obesity Neuropathy Bilateral LEs Osteoarthritis Rheumatoid arthritis Blood work consistent, no rheumatology evaluation Surgical History Family history of reaction to anesthesia Mother > "slow to wake" H/O sinus surgery H/O thumb surgery CYST REMOVED History of anesthesia reaction "Slow to wake" with TL History of bilateral tubal ligation History of cholecystectomy History of colonoscopy History of dilatation and curettage History of tooth extraction History of total hip arthroplasty RT/LEFT History of total knee replacement Right TKA (10/21/20): SAB at L2/L3 (x3 attempts) + PNB at 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 Required: No Beliefs That Will Affect Care: None marital status: Single Current Living Situation: Alone Feels Safe at Home: Yes Assistive Devices: Cane, Denture - Upper, Denture - Lower, Glasses and Wheelchair Review of Systems Constitutional: no fever, no chills and no sweats Respiratory: no cough and no dyspnea Cardiovascular: no chest pain, no dyspnea and no orthopnea Gastrointestinal: no abdominal pain, no nausea and no vomiting Musculoskeletal: as per Subjective / HPI Physical Exam Physical Exam: HT: 5ft 5in WT: 131 kg Constitutional: WD/WN, vitals as above no acute distress Respiratory: normal respiratory effort, lungs clear to auscultation no respiratory distress, no labored breathing and does not use accessory muscles Cardiovascular: RRR, no murmur, no edema Gastrointestinal (Abdomen): normal bowel sounds, soft, nontender, no hepatosplenomegaly Musculoskeletal: Knee: + knee abnormal to inspection (LEFT KNEE), + effusion (+1 effusion), + limited ROM of knee (ROM 0/3/110), + knee ROM with crepitation, + joint line tenderness (medial joint line) and + Taisha's sign positive; no deformity, no skin erythema, no ecchymosis, no valgus laxity, no varus laxity, anterior drawer test negative, Lucia's sign negative and pivot shift test negative Results & Data Results & Data ([facility]) Diagnostic Findings Left Knee X-ray: left knee series confirm advanced degenerative changes to the left knee, greatest medial compartments and patellofemoral joint, showing joint space narrowing, osteophyte formation and subchondral sclerosis. no acute bony pathology noted.
[~2021-08-18 07:01] MED LIST changes: +ACETAMINOPHEN 500 MG TAB PO SCH; -ASPEC81 PO; +BUPIVACAINE 0.5 % 5 MG/1 ML PF 10ML VIAL ONE; +CeleBREX 200 MG CAP PO SCH; +EPINEPHrine INJ 1 MG/ML AMP ONE; +FAMOTIDINE 20 MG TAB PO SCH; +GABAPENTIN 600 MG DOSE PO SCH; +LR 500ML BOLUS, THEN 15ML/HR IV SCH; +METOCLOPRAMIDE HCL 10 MG TABLET PO SCH; -OSEL75CA12 PO; +ROPIVACAINE 0.5% 5 MG/ML 30 ML VIAL ONE; +ROPIVACAINE 0.5% HCL/PF 150 MG, BUPIVACAINE 0.75% MPF 20 ML, EPINEPHrine 30MG/30ML (OR ... INSTIL SCH; +TRANEXAMIC ACID 1,000 MG **IV Intra-op IV SCH; +TRANEXAMIC ACID 1,000 MG **IV Pre-op IV SCH; +dexAMETHasone 4 MG TAB PO SCH; +oxyCODONE HCL 10 MG TABCR (OxyCONTIN) PO SCH
--- NOTE | 2021-08-18 07:41 | History & Physical Bridge Note ---
Date of Service August 18, 2021 History & Physical Bridge Note I have examined the patient, reviewed the History & Physical and in the interval since the performance of the History & Physical I have noted the following changes of clinical significance: no changes noted
[2021-08-18] MEDS ORDERED: PROPOFOL IV EMULSION 10 MG/ML 20 ML VIAL IV ONE (08:01)
[2021-08-18] MEDS ORDERED: fentaNYL citrate 100 MCG/2 ML VIAL ONE (08:01)
[2021-08-18] MEDS ORDERED: MIDAZOLAM HCL 1 MG/ML 2ML VIAL ONE (08:01)
[2021-08-18] MEDS ORDERED: ORTHO JOINT ANESTHETIC ONE (09:33)
[2021-08-18] MEDS ORDERED: ePHEDrine sulfate 50 MG/ML SYR ONE (10:16)
[2021-08-18] MEDS ORDERED: DEXAMETHASONE SOD INJ 4 MG/ML VIAL ONE (10:16)
[2021-08-18] MEDS ORDERED: ONDANSETRON INJ 2 MG/ML 2 ML VIAL ONE (10:16)
--- NOTE | 2021-08-18 11:00 | Operative Report ---
Post Operative Report Pre & Post Diagnosis Operation Date: 08/18/21 08:50 Pre-Op Diagnosis: Left Knee Osteoarthritis morbid obesity Post-Op Diagnosis: Left Knee Osteoarthritis morbid obesity I identified the patient and participated in the time-out.: Yes Procedure Operation Date: 08/18/21 08:50 Actual Procedures p Left Total Knee Arthroplasty(Left) utilizing [employer] persona total knee arthroplasty patient matched size femur 8 narrow tibia D polyten medial constrained patella 31 oval Adolfo Ryan DO Surgeon Adolfo Ryan DO Wet Room Supervisor Rito WHARTON Estimated Blood Loss 5 Findings Consistent with Post-Op Diagnosis Patient resents with severe end-stage tricompartmental degenerative joint disease of the left knee no response to conservative management patient failed attempted corticosteroid injection viscosupplementation relative rest intraoperative findings included subchondral sclerosis marginal osteophytes eburnated [id number] with moderate to large effusion Specimens Bone and cartilage Drains Medium bore Hemovac Anesthesia Type MAC Spinal Regional Complications none Disposition Accompanied Patient To Recovery: No Disposition: Recovery Room Indications Patient presents with severe end-stage DJD left knee after failed attempted conservative management clinic physical therapy anti-inflammatories relative rest activity modification corticosteroid injection viscosupplementation Description of Procedure After proper prepping and draping of the left lower extremity anterior midline incision was made over the region of the extensor extensor mechanism after meticulous hemostasis was obtained and maintained in subcutaneous tissues a medial parapatellar incision was made The patella was subluxed lateralward the medial lateral gutter were cleaned from any hypertrophic synovitis and scar tissue of the distal femoral block was placed and the distal femoral osteotomy cut was made subsequently the chamfers anterior and posterior osteotomy cuts were made utilizing the 4-in-1 block the tibia was subsequently subluxed anteriorward medial and ateral meniscal remnants were excised in their entirety remnants of the anterior and posterior cruciate ligaments were excised in their entirety excellent exposure of the proximal tibia was obtained the tibial osteotomy guide was placed on the proximal tibial osteotomy cut was made once again the knee was irrigated with copious amounts of sterile saline solution the patella was subsequently everted lateralward thickened scar tissue around the patella was removed the patella was subsequently cut utilizing a freehand technique and was drilled prepared for final preparation and placement of patella socially flexion-extension gaps were checked and the equal and symmetric trials were placed to the appropriate femoral and tibial trials with poly-spacer being placed for equal flexion and extension gaps and full range of motion including extension to 0 and flexion to 140 the trial components after having been taken to recovery range of motion was subsequently removed meticulous hemostasis was obtained and maintained subsequently a knee block injection of joint cocktail including ropivacaine 0.5% 150 mg. Bupivacaine 0.5% epinephrine 1-200,030 mL's toradol 30 mg dexamethasone 4 mg ketamine 10 mg clonidine 100 micrograms normal saline solution 30 mg was infiltrated into the soft tissues of the posterior knee medial lateral gutters and periosteal synovium special attention was paid to protect neurovascular structures at all times subsequently trial components having been removed the knee was irrigated with sterile saline solution. debris was removed the proximal tibia was subsequently prepared and was made ready for the placement of the tibial component tibial component was also cemented and tamped into position the femoral component was subsequently placed and cemented in the position the patellar component was subsequently cemented in position because hemostasis once again obtained and maintained wound having been thoroughly irrigated with debridement and debridement lavage was performed as well as a medial parapatellar incision closed with #1 Vicryl in interrupted fashion subcutaneous was closed with #2 Vicryl skin was closed with skin clips. PA-C was necessary for prepping and drapping as well as wound closure of deep fascia Sub cutaneous tissue and skin and was necessary for the case. A sterile compressive dressing was placed patient was taken to recovery in stable condition of report dictated by Connor I attest to the content of the Intraoperative Record and any orders documented therein. Any exceptions are noted below.Due to the complex nature of the procedure, the entire surgery was performed with the operational assistance of Rito WHARTON. The executive assistant to general counsel, under direct supervision, was involved in the actual performance of all aspects of the surgical procedure including hemostasis, tissue retraction and incision, instrument management, patient positioning, and wound closure.The patient is 131.088 kg with a BMI of 48.1. The patient's habitus did contribute to significant technical difficulty requiring extra time. Additional help was necessary in order to position the patient safely. The use of specialized (longer, deeper) retractors and/or instruments were needed. Due to this, the procedure took 15minutes longer than the standard total knee arthroplasty." I attest to the content of the Intraoperative Record and any orders documented therein. Any exceptions are noted below.
[2021-08-18] MEDS ORDERED: ePHEDrine sulfate 50 MG/ML AMP IV PRN (12:12)
[2021-08-18] MEDS ORDERED: ATROPINE SULFATE 0.1 MG/ML 10ML SYR IV PRN (12:12)
--- NOTE | 2021-08-18 12:36 | Anesthesiology Progress Note ---
Date of Service August 18, 2021 Anesthesia Post Procedure Vital Signs Vital Signs: Temp Pulse Pulse Resp BP BP Pulse Ox 08/18/21 12:30 63 18 111/45 L 95 08/18/21 12:20 60 18 98/53 L 95 08/18/21 12:10 63 16 105/51 L 95 08/18/21 12:00 66 16 102/49 L 95 08/18/21 11:50 67 18 101/49 L 95 08/18/21 11:41 36.0 C L 74 20 97/37 L 95 08/18/21 07:23 37.1 C 66 20 148/91 H 97 Transfer of Care Handoff Completed per policy Notes Mental Status: alert / awake / arousable Patient Amnestic to Procedure: Yes Nausea / Vomiting: adequately controlled Pain: adequately controlled Airway Patency, RR, SpO2: stable & adequate BP & HR: stable & adequate Hydration State: stable & adequate Neuraxial Anesthesia: was administered and sensory block is resolving Anesthetic Complications: no major complications apparent
--- NOTE | 2021-08-18 12:36 | XRay Report ---
XR knee LT 1 or 2V routine HISTORY: 61 years-old Female Surgical Post Op left knee total joint arthroplasty COMPARISON: None TECHNIQUE: 2 views of the left knee FINDINGS: Left knee total joint arthroplasty with patellar resurfacing. No acute fracture or malalignment. Surg ical drainage catheter is in place. IMPRESSION: Left knee total joint arthroplasty with expected postoperative changes. ACT 112: Negative or not required by law. The above report was generated using voice recognition software. It may contain grammatical, syntax o r spelling errors. Electronically signed by: Garrett Hutchinson M.D. 08/18/2021 12:34 PM
[2021-08-18] MEDS ORDERED: ONDANSETRON INJ 2 MG/ML 2 ML VIAL IV PRN (12:51)
[2021-08-18] MEDS ORDERED: bisacodyL 10 MG SUPP PR PRN (12:51)
[2021-08-18] MEDS ORDERED: SODIUM CHLORIDE 0.9% 1000ML 1,000 ML IV SCH (12:51)
[2021-08-18] MEDS ORDERED: MAGNESIUM HYDROXIDE SUSP 30 ML UDC PO PRN (12:51)
[2021-08-18] MEDS ORDERED: HYDROmorphone INJ 0.5 MG/0.5 ML SYR IV PRN (12:51)
[2021-08-18] MEDS ORDERED: diphenhydrAMINE 50 MG/ML VIAL IV PRN (12:51)
[2021-08-18] MEDS ORDERED: NALOXONE HCL 0.4 MG/1 ML VIAL/CARP IV PRN (12:51)
[2021-08-18] MEDS ORDERED: KETOROLAC TROMETHAMINE 15 MG/ML VIAL IV SCH (12:51)
[2021-08-18] MEDS ORDERED: TAPENTADOL HCL 50 MG TAB PO PRN (12:51)
[2021-08-18] MEDS: ACETAMINOPHEN 500 MG TAB PO SCH ×2 (14:21→21:04)
[2021-08-18] MEDS: ceFAZolin 2000MG 2,000 MG/15 ML SYR IV SCH (17:43)
[2021-08-18] MEDS: DOCUSATE SODIUM 100 MG CAP PO SCH (20:29)
[2021-08-18] MEDS ORDERED: SENNA 8.6 MG TAB PO SCH (21:00)
[2021-08-18] MEDS: KETOROLAC TROMETHAMINE 15 MG/ML VIAL IV SCH (21:01)
[2021-08-19] MEDS: ceFAZolin 2000MG 2,000 MG/15 ML SYR IV SCH (01:30)
[2021-08-19] MEDS: KETOROLAC TROMETHAMINE 15 MG/ML VIAL IV SCH ×2 (01:31→07:46)
[2021-08-19] MEDS: ACETAMINOPHEN 500 MG TAB PO SCH (05:43)
[2021-08-19 07:31] LABS: Hematocrit (blood only) 40.4 % (37-47); Hemoglobin 13.5 g/dL (12.0-16.0); Mean Corpuscular Hemoglobin 30.8 pg (25-34); Mean Corpuscular Hgb Conc 33.4 g/dL (32-36); Mean Corpuscular Volume 92.2 fL (80-100); Mean Platelet Volume 9.5 fL (7.4-10.4); Platelet Count 320 K/uL (130-400); RDW Coefficient of Variation 13.8 % (11.5-14.5); RDW Standard Deviation 46.5 fL (36.4-46.3); Red Blood Count 4.38 M/uL (4.2-5.4)
[2021-08-19 07:49] LABS: BUN Creatinine Ratio 20.5 (10-20); Calcium 9.3 mg/dl (8.5-10.1); Creatinine Clr Calc Pharmacy 107.9 ml/min; Est GFR (African American) 101.6 ml/min; Est GFR (Non-African American) 87.7 ml/min; Potassium 4.2 mmol/L (3.5-5.1)
[2021-08-19] MEDS: DOCUSATE SODIUM 100 MG CAP PO SCH (07:49)
[2021-08-19] MEDS ORDERED: RIVAROXABAN 10 MG TABLET PO SCH (09:00)
[2021-08-19] MEDS ORDERED: MULTIVITAMIN TAB PO SCH (09:00)
--- NOTE | 2021-08-19 11:58 | Orthopedic Progress Note ---
Date of Service August 19, 2021 Assessment & Plan (1) Arthritis of knee, left: Plan: Postop day 1 status post left total knee arthroplasty. Has progressed well with her physical therapy and Occupational Therapy protocols. DVT prophylaxis-we finally came to an agreement to use Lovenox at home. I have also discussed this with case management and they are looking into possibly of any assistance with paying for Lovenox if needed. They stated that her access card should be able to cover these medications. (CM returned a message saying patient would only need to pay $1 out of pocket for the Lovenox) Pain management-patient is agreeable to try hydromorphone 2 mg tablet for pain control at home. If she began having problems with this medication, she is to call the office. We discussed the limited use of Motrin but should limit the amount she takes especially being on Lovenox. DC planning-patient is planning for [facility] which will start on Monday. She has been given multiple papers on exercises to continued during her time at home prior to that time of starting PT. Admission and Anticipated Discharge Date Admission Date: August 18, 2021 Subjective Postop day 1 Patient sitting up in bed awake and alert. No complaints at this time. Pain appears controlled. I was notified by nursing staff that patient was refusing her Xarelto. In discussing the situation with the patient, patient is refusing her Xarelto because of bleeding tendencies she had with aspirin. She states that she had had baby aspirin in the past and after several days began having nosebleeds and increased bruising. She states that she did not have any kind of coagulopathy work-up in the past. I called the patient's primary care physi kacy's office and discussed her previous health with them. She has had no problems in the past with DVT or also with any type of bleeding issues that was noted in the chart. She states she also had trouble with her pain medication last time. She was sent home with which ended up being a problem secondary to her pharmacy not getting it in for approximately a week. She states that she would rather not deal with that again. She states that she was taking a lot of Motrin at home the last time which we discussed is not exactly a good thing due to gastrointestinal problems including bleeding ulcers etc. and while on any type of anticoagulant, she should limit the amount of NSAIDs that she is taking. She is agreeable to try hydromorphone 2 mg tablets at home initially. The patient has a fairly big fear of medications secondary to some things that have happened to her family in the past which she attributes to the medications they were on. She also asked if Xarelto was a medication that a famous golfer from. We discussed that she was discharged home with Xarelto last year when she had her other knee done. She states that she does not remember taking it. I discussed the risks involved of not taking any type of anticoagulant post total knee surgery including but not all-inclusive to development of DVT, pulmonary embolus, CVA, DE. Patient then remembered that she was able to take "belly shots" after her surgery that she had in the past. She did not have any problems with this medication. Discussed the medication Lovenox. Discussed that many medications including blood thinners have the risks and also the benefits. Patient was agreeable to go ahead with the Lovenox shots. Physical Exam Physical Exam: Dressings are clean, dry, and intact. Calves are soft and nontender. Neurovascular is intact. Toes are mobile. She has good dorsiflexion plantarflexion of the left foot and ankle. Hemovac drainage was 75 cc from the previous shift. Results & Data ([facility]) Vital Signs (Past 12 Hours) Vital Signs Temp Pulse Resp BP BP Pulse Ox 08/19/21 11:45 36.6 C 67 18 132/80 119/53 L 97 08/19/21 11:42 36.6 C 67 18 132/80 97 08/19/21 07:16 36.4 C L 62 16 119/53 L 93 08/19/21 03:08 36.6 C 66 20 109/72 96 Laboratory Results Laboratory Results WBC 16.90 K/uL (4.8-10.8) H 08/19/21 07:12 RBC 4.38 M/uL (4.2-5.4) 08/19/21 07:12 Hgb 13.5 g/dL (12.0-16.0) 08/19/21 07:12 Hct 40.4 % (37-47) 08/19/21 07:12 MCV 92.2 fL (80-100) 08/19/21 07:12 MCH 30.8 pg (25-34) 08/19/21 07:12 MCHC 33.4 g/dL (32-36) 08/19/21 07:12 RDW Std Deviation 46.5 fL (36.4-46.3) H 08/19/21 07:12 RDW Coeff of Joselyn 13.8 % (11.5-14.5) 08/19/21 07:12 Plt Count 320 K/uL (130-400) 08/19/21 07:12 MPV 9.5 fL (7.4-10.4) 08/19/21 07:12 Sodium 136 mmol/L (136-145) 08/19/21 07:12 Potassium 4.2 mmol/L (3.5-5.1) 08/19/21 07:12 Chloride 107 mmol/L (98-107) 08/19/21 07:12 Carbon Dioxide 22 mmol/L (21-32) 08/19/21 07:12 Anion Gap 7 (3-11) 08/19/21 07:12 BUN 15 mg/dl (6-23) 08/19/21 07:12 Creatinine 0.73 mg/dl (0.6-1.2) 08/19/21 07:12 Est Cr Clr Drug Dosing 107.9 ml/min 08/19/21 07:12 Est GFR ( Amer) 101.6 ml/min 08/19/21 07:12 Est GFR (Non-Af Amer) 87.7 ml/min 08/19/21 07:12 BUN/Creatinine Ratio 20.5 (10-20) H 08/19/21 07:12 Glucose 161 mg/dl (70-99(Fasting)) H 08/19/21 07:12 Calcium 9.3 mg/dl (8.5-10.1) 08/19/21 07:12 Blood Type A Positive 08/18/21 08:36 Antibody Screen NEGATIVE 08/18/21 08:36 Impressions Knee X-Ray 08/18/21 11:53 XR knee LT 1 or 2V routine HISTORY: 61 years-old Female Surgical Post Op left knee total joint arthroplasty COMPARISON: None TECHNIQUE: 2 views of the left knee FINDINGS: Left knee total joint arthroplasty with patellar resurfacing. No acute fracture or malalignment. Surgical drainage catheter is in place. IMPRESSION: Left knee total joint arthroplasty with expected postoperative dontrell nges. ACT 112: Negative or not required by law. The above report was generated using voice recognition software. It may contain grammatical, syntax or spelling errors. Electronically signed by: Garrett Hutchinson M.D. 08/18/2021 12:34 PM
[2021-08-19] MEDS ORDERED: ENOXAPARIN INJ 40 MG/0.4 ML SYR SQ ONE (12:00)
--- NOTE | 2021-08-20 09:18 | Discharge Summary ---
Date of Service August 20, 2021 Admission HPI Per Admitting Provider Patient is a 61 year old female who complains of left knee pain, presents for pre-op evaluation prior to a left total knee replacement by Dr Ryan at [facility]. she complains of pain, crepitus and stiffness in her left knee. Currently the patient states that the symptoms are moderate-severe and rated as 6/10. The pain is described as aching, sharp and throbbing. The symptoms occur continuously and are aggravated by ascending stairs, daily activities, first steps while awake walking. Prior NSAIDs include IBU and Aleve, has allergies to hydrocodone and Oxycodone. Prior pain medications include Tylenol. she has been treated with previous cortisone and visco injections in the past without much relief as well as Iovera treatment. she recently underwent right tka and has recovered well enough that she would like to proceed with left TKA. Admission Exam Per Admitting Provider Physical Exam: HT: 5ft 5in WT: 124kg Constitutional: WD/WN, vitals as above no acute distress Respiratory: normal respiratory effort, lungs clear to auscultation no respiratory distress, no labored breathing and does not use accessory muscles Cardiovascular: RRR, no murmur, no edema Gastrointestinal (Abdomen): normal bowel sounds, soft, nontender, no hepatosplenomegaly Musculoskeletal: Knee: + knee abnormal to inspection (LEFT KNEE), + effusion (+1 effusion), + limited ROM of knee (ROM 0/3/110), + knee ROM with crepitation, + joint line tenderness (medial joint line) and + Taisha's sign positive; no deformity, no skin erythema, no ecchymosis, no valgus laxity, no varus laxity, anterior drawer test negative, Lucia's sign negative and pivot shift test negative Principal Diagnosis Left Knee Osteoarthritis Discharge Data Allergies Allergy/AdvReac Type Severity Reaction Status Date / Time hydrocodone Allergy Intermediate Diffuse Verified 08/18/21 07:37 itching oxycodone Allergy Intermediate Diffuse Verified 08/18/21 07:37 itching triamcinolone Allergy Intermediate Blistering Verified 08/18/21 07:37 aspirin AdvReac Mild Nose bleed Verified 08/18/21 07:37 Procedures Performed Operation Date: 08/18/21 08:50 Actual Procedures p Left Total Knee Arthroplasty(Left) - DO Melida Uriostegui Studies 08/18/21 05:00 US - OR guided needle placemen Routine Discharge Plan Discharge Items Patient Disposition: Home - Home Health Services Reason For Visit: Left Knee Osteoarthritis Discharge Diagnosis: Left Knee Osteoarthritis Activity: Per Instructions section Weightbearing: Left weightbearing Weightbearing Comment: as tolerated with walker or crutches Non-emergency contact: Surgeon Call non-emergency contact if: your pain is not controlled, your temperature is above 101.5, your wound has increased redness and your wound has increased drainage Follow-up/Referrals: Adolfo Ryan DO [Surgeon] - (Follow-up in [address] Ryan for your first postoperative visit.) Luis Cornelius D.O. [Primary Care Provider] - Diet: Regular Addtl Attending Provider Instructions: ACTIVITY RECOMMENDATIONS: SELF CARE INSTRUCTIONS AFTER TOTAL KNEE REPLACEMENT A. You may need to continue a physical therapy program after discharge from the hospital. There are several options available to you. Your doctor will assist you in selecting the best one for you. 1. An out-patient facility 2 to 3 times a week for therapy or home therapy. 2. Continue working on all exercises taught to you in the hospital. Your goals should be to increase bending of your knee to 90 degrees and beyond and to fully straighten your knee. B. You may progress at your own pace from walking with a walker or crutches to a cane; then to no assistive devices. C. Make walking a part of your daily routine. Be up as much as comfortable with rest periods throughout the day. Rest with leg elevation is very important. Use the ice wrap frequently for the first 3-4 weeks. D. There are no restrictions on activities. You may ride in a car, shop, participate in installer inspector final and all social activities. E. Wear the long elastic stockings (ARYAN hose) 20 hours a day for 2 weeks after surgery. They can be removed several times a day for laundering and for a bath. F. You may shower, no tub baths until cleared by your doctor. SPECIAL CARE INSTRUCTIONS: VERY IMPORTANT TO READ AND REVIEW A. There are a few signs you need to watch for after you are home. Call [facility] if you notice any of the followin. Increased severe knee pain. Some pain is expected especially when you exercise. 2. Increased swelling in your leg or knee; pain or swelling of the calf muscle in either lower leg. 3. Any fluid drainage from the incision. 4. Shortness of breath or chest pain. B. Please call [facility] at if you have any concerns or questions about your operation or recovery. The doctor or his nurse will return your call promptly. C. You must take antibiotics before dental work, bladder, bowel or other surgery. Your doctor will provide you with a permanent care to carry describing this precaution. IMPORTANT: * TAKE YOUR LOVENOX INJECTION ONCE A DAY FOR ONE MONTH. IF YOU EXPERIENCE INCREASED BRUISING, NOSE BLEEDS ETC, PLEASE CALL THE OFFICE IMMEDIATELY. [phone] ALSO CALL YOUR PRIMARY CARE PHYSICIAN. * CALL IF INCREASED PAIN, REDNESS, DRAINAGE OR FEVER GREATER THAT 101. * WEAR ARYAN HOSE 20 HOURS PER DAY FOR 2 WEEKS. * RIK dressing - This is a large suction dressing covering your incision. This will help pull any excess drainage from the wound and allow your incision to heal properly. You may shower with this if you can keep the unit outside of the shower. If any bleeding or leakage is noted please call your doctor's office. This will remain on your incision for 7 days and then should be rem vicente. This can be done yourself or by the home nursing staff if applicable. The entire unit is disposable once removed. Once removed, keep incision clean and dry. If redness or drainage is noted, please call your surgeon. . * DERMABOND Prineo- This is a mesh tape dressing that is covered with glue. It should remain in place until the incision is properly healed, usually 10-14 days. This dressing is designed to naturally slough off. You may trim the excess mesh tape as it peels off. Incision may be briefly wet in a shower. D ry immediately by blotting with a clean, dry towel. Do not bath or swim until instructed by your doctor. Do not scratch, rub, or pick at the dressing. Do not apply any topical ointments or lotions until dressing is completely removed and/or instructed by your doctor. There may be a small piece of suture material at one end of your incision. Do not pull or trim this. If it is bothersome or catching on clothing, you may cover it with a band-aid. FOLLOW UP VISIT: If appointment is not already scheduled: Please call [facility] to make a follow-up appointment for 2 weeks after your surgery at . Please follow up with your Primary Care Physician to discuss your increased bruising / nosebleeds with Aspirin products and a general check up. Stand-Alone Forms: My [facility] [email or web address], Smoking Cessation Medications and DC Order Prescriptions: New acetaminophen [Tylenol Extra Strength] 500 mg Tablet 1,000 mg PO Q8 14 Days Qty: 84 RF: 0 cefadroxil 500 mg capsule 500 mg PO BID Qty: 14 RF: 0 polyethylene glycol 3350 [Miralax] 17 gram powder in packet 17 g PO DAILY PRN (Reason: constipation) Qty: 5 RF: 0 enoxaparin 40 mg/0.4 mL Syringe 40 mg subcut Q24H 30 Days Qty: 30 RF: 1 hydromorphone 2 mg tablet 2 mg PO Q4H MDD 6 tabs Qty: 18 RF: 0 Discontinued ibuprofen 200 mg Tablet 1,000 mg PO HS PRN (Reason: Pain) RF: 0 Discharge Orders: Discharge Order (Routine); Ordered 08/19/21 Ordered By: Rito Funk/Other Patient Handouts: DVT Post Op Prevention Admission Data Admit Date/Time: 08/18/21 11:53 Attending Provider: Adolfo Ryan Admit Provider: Adolfo Ryan Primary Care Provider: Luis Cornelius Other Interventions: Discharge Summary Assessment (RN) Last Done: 08/19/21 11:45
--- NOTE | 2021-08-20 09:22 | Discharge Summary ---
Date of Service August 20, 2021 Admission HPI Per Admitting Provider Chief Complaint: Left knee pain Primary Care Provider: Luis Cornelius Patient is a 61 year old female who complains of left knee pain, presents for pre-op evaluation prior to a left total knee replacement by Dr Ryan at [facility]. she complains of pain, crepitus and stiffness in her left knee. Currently the patient states that the symptoms are moderate-severe and rated as 6/10. The pain is described as aching, sharp and throbbing. The symptoms occur continuously and are aggravated by ascending stairs, daily activities, first steps while awake walking. Prior NSAIDs include IBU and Aleve, has allergies to hydrocodone and Oxycodone. Prior pain medications include Tylenol. she has been treated with previous cortisone and visco injections in the past without much relief as well as Iovera treatment. she recently underwent right tka and has recovered well enough that she would like to proceed with left TKA. Admission Exam Per Admitting Provider Physical Exam: HT: 5ft 5in WT: 131 kg Constitutional: WD/WN, vitals as above no acute distress Respiratory: normal respiratory effort, lungs clear to auscultation no respiratory distress, no labored breathing and does not use accessory muscles Cardiovascular: RRR, no murmur, no edema Gastrointestinal (Abdomen): normal bowel sounds, soft, nontender, no hepatosplenomegaly Musculoskeletal: Knee: + knee abnormal to inspection (LEFT KNEE), + effusion (+1 effusion), + limited ROM of knee (ROM 0/3/110), + knee ROM with crepitation, + joint line tenderness (medial joint line) and + Taisha's sign positive; no deformity, no skin erythema, no ecchymosis, no valgus laxity, no varus laxity, anterior drawer test negative, Lucia's sign negative and pivot shift test negative Principal Diagnosis Left Knee Osteoarthritis Discharge Data Allergies Allergy/AdvReac Type Severity Reaction Status Date / Time hydrocodone Allergy Intermediate Diffuse Verified 08/18/21 07:37 itching oxycodone Allergy Intermediate Diffuse Verified 08/18/21 07:37 itching triamcinolone Allergy Intermediate Blistering Verified 08/18/21 07:37 aspirin AdvReac Mild Nose bleed Verified 08/18/21 07:37 Procedures Performed Operation Date: 08/18/21 08:50 Actual Procedures p Left Total Knee Arthroplasty(Left) - Adolfo Ryan DO Ordered Studies 08/18/21 05:00 US - OR guided needle placemen Routine Hospital Course (1) Arthritis of knee, left: Patient:PENG SALEH Admit Date:08/18/21 MR#:[id number] Att Phy:Adolfo Ryan D.O. Acct ID:[id number] Nadine Phy:Luis Cornelius D.O. Date:1960 Fam Phy: Age:61 Location:3N Sex:F Room/Bed:N376-1 cc: ~ *NOTICE TO RECEIVING DEMOCRAT/AGENCY This information is strictly Confidential and protected under [place] law. [place] law prohibits you from making any further disclosure of this information unless further disclosure is expressly permitted by the written consent of the person to whom it pertains or is authorized by law. A general authorization for the release of medical or other information is not sufficient for this purpose. Hospital accepts no responsibility if the information is made available to any other person, INCLUDING THE PATIENT. Date of Service August 19, 2021 Assessment & Plan (1) Arthritis of knee, left: Plan: Postop day 1 status post left total knee arthroplasty. Has progressed well with her physical therapy and Occupational Therapy protocols. DVT prophylaxis-we finally came to an agreement to use Lovenox at home. I have also discussed this with case management and they are looking into possibly of any assistance with paying for Lovenox if needed. They stated that her access card should be able to cover these medications. ( returned a message saying serena yelena would only need to pay $1 out of pocket for the Lovenox) Pain management-patient is agreeable to try hydromorphone 2 mg tablet for pain control at home. If she began having problems with this medication, she is to call the office. We discussed the limited use of Motrin but should limit the amount she takes especially being on Lovenox. DC planning-patient is planning for [facility] which will start on Monday. She has been given multiple papers on exercises to continued during her time at home prior to that time of starting PT. Admission and Anticipated Discharge Date Admission Date: August 18, 2021 Subjective Postop day 1 Patient sitting up in bed awake and alert. No complaints at this time. Pain appears controlled. I was notified by nursing staff that patient was refusing her Xarelto. In discussing the situation with the patient, patient is refusing her Xarelto because of bleeding tendencies she had with aspirin. She states that she had had baby aspirin in the past and after several days began having nosebleeds and increased bruising. She states that she did not have any kind of coagulopathy work-up in the past. I called the patient's primary care physician's office and discussed her previous health with them. She has had no problems in the past with DVT or also with any type of bleeding issues that was noted in the chart. She states she also had trouble with her pain medication last time. She was sent home with which ended up being a problem secondary to her pharmacy not getting it in for approximately a week. She states that she would rather not deal with that again. She states that she was taking a lot of Motrin at home the last time which we discussed is not exactly a good thing due to gastrointestinal problems including bleeding ulcers etc. and while on any type of anticoagulant, she should limit the amount of NSAIDs that she is taking. She is agreeable to try hydromorphone 2 mg tablets at home initially. The patient has a fairly big fear of medications secondary to some things that have happened to her family in the past which she attributes to the medications they were on. She also asked if Xarelto was a medication that a famous golfer from. We discussed that she was discharged home with Xarelto last year when she had her other knee done. She states that she does not remember taking it. I discussed the risks involved of not taking any type of anticoagulant post total knee surgery including but not all-inclusive to development of DVT, pulmonary embolus, CVA, DE. Patient then remembered that she was able to take "belly shots" after her surgery that she had in the past. She did not have any problems with this medication. Discussed the medication Lovenox. Discussed that many medications including blood thinners have the risks and also the benefits. Patient was agreeable to go ahead with the Lovenox shots. Physical Exam Physical Exam: Dressings are clean, dry, and intact. Calves are soft and nontender. Neurovascular is intact. Toes are mobile. She has good dorsiflexion plantarflexion of the left foot and ankle. Hemovac drainage was 75 cc from the previous shift. Results & Data ([facility]) Vital Signs (Past 12 Hours) Vital Signs Temp Pulse Resp BP BP Pulse Ox 08/19/21 11:45 36.6 C 67 18 132/80 119/53 L 97 08/19/21 11:42 36.6 C 67 18 132/80 97 08/19/21 07:16 36.4 C L 62 16 119/53 L 93 08/19/21 03:08 36.6 C 66 20 109/72 96 Laboratory Results Laboratory Results WBC 16.90 K/uL (4.8-10.8) H 08/19/21 07:12 RBC 4.38 M/uL (4.2-5.4) 08/19/21 07:12 Hgb 13.5 g/dL (12.0-16.0) 08/19/21 07:12 Hct 40.4 % (37-47) 08/19/21 07:12 MCV 92.2 fL (80-100) 08/19/21 07:12 MCH 30.8 pg (25-34) 08/19/21 07:12 MCHC 33.4 g/dL (32-36) 08/19/21 07:12 RDW Std Deviation 46.5 fL (36.4-46.3) H 08/19/21 07:12 RDW Coeff of Joselyn 13.8 % (11.5-14.5) 08/19/21 07:12 Plt Count 320 K/uL (130-400) 08/19/21 07:12 MPV 9.5 fL (7.4-10.4) 08/19/21 07:12 Sodium 136 mmol/L (136-145) 08/19/21 07:12 Potassium 4.2 mmol/L (3.5-5.1) 08/19/21 07:12 Chloride 107 mmol/L (98-107) 08/19/21 07:12 Carbon Dioxide 22 mmol/L (21-32) 08/19/21 07:12 Anion Gap 7 (3-11) 08/19/21 07:12 BUN 15 mg/dl (6-23) 08/19/21 07:12 Creatinine 0.73 mg/dl (0.6-1.2) 08/19/21 07:12 Est Cr Clr Drug Dosing 107.9 ml/min 08/19/21 07:12 Est GFR ( Amer) 101.6 ml/min 08/19/21 07:12 Est GFR (Non-Af Amer) 87.7 ml/min 08/19/21 07:12 BUN/Creatinine Ratio 20.5 (10-20) H 08/19/21 07:12 Glucose 161 mg/dl (70-99(Fasting)) H 08/19/21 07:12 Calcium 9.3 mg/dl (8.5-10.1) 08/19/21 07:12 Blood Type A Positive 08/18/21 08:36 Antibody Screen NEGATIVE 08/18/21 08:36 Impressions Knee X-Ray 08/18/21 11:53 XR knee LT 1 or 2V routine HISTORY: 61 years-old Female Surgical Post Op left knee total joint arthroplasty COMPARISON: None TECHNIQUE: 2 views of the left knee FINDINGS: Left knee total joint arthroplasty with patellar resurfacing. No acute fracture or malalignment. Surgical drainage catheter is in place. IMPRESSION: Left knee total joint arthroplasty with expected postoperative changes. ACT 112: Negative or not required by law. The above report was generated using voice recognition software. It may contain grammatical, syntax or spelling errors. Electronically signed by: Garrett Hutchinson M.D. 08/18/2021 12:34 PM Total Time Total Time Spent Total Time Spent (In Minutes): 10 Discharge Plan Discharge Items Patient Disposition: Home - Home Health Services Reason For Visit: Left Knee Osteoarthritis Discharge Diagnosis: Left Knee Osteoarthritis Activity: Per Instructions section Weightbearing: Left weightbearing Weightbearing Comment: as tolerated with walker or crutches Non-emergency contact: Surgeon Call non-emergency contact if: your pain is not controlled, your temperature is above 101.5, your wound has increased redness and your wound has increased drainage Follow-up/Referrals: Adolfo Ryan DO [Surgeon] - (Follow-up in [address] Ryan for your first postoperative visit.) Luis Cornelius D.O. [Primary Care Provider] - Diet: Regular Addtl Attending Provider Instructions: ACTIVITY RECOMMENDATIONS: SELF CARE INSTRUCTIONS AFTER TOTAL KNEE REPLACEMENT A. You may need to continue a physical therapy program after discharge from the hospital. There are several options available to you. Your doctor will assist you in selecting the best one for you. 1. An out-patient facility 2 to 3 times a week for therapy or home therapy. 2. Continue working on all exercises taught to you in the hospital. Your goals should be to increase bending of your knee to 90 degrees and beyond and to fully straighten your knee. B. You may progress at your own pace from walking with a walker or crutches to a cane; then to no assistive devices. C. Make walking a part of your daily routine. Be up as much as comfortable with rest periods throughout the day. Rest with leg elevation is very important. Use the ice wrap frequently for the first 3-4 weeks. D. There are no restrictions on activities. You may ride in a car, shop, participate in sql data analyst and all social activities. E. Wear the long elastic stockings (ARYAN hose) 20 hours a day for 2 weeks after surgery. They can be removed several times a day for laundering and for a bath. F. You may shower, no tub baths until cleared by your doctor. SPECIAL CARE INSTRUCTIONS: VERY IMPORTANT TO READ AND REVIEW A. There are a few signs you need to watch for after you are home. Call [facility] if you notice any of the followin. Increased severe knee pain. Some pain is expected especially when you exercise. 2. Increased swelling in your leg or knee; pain or swelling of the calf muscle in either lower leg. 3. Any fluid drainage from the incision. 4. Shortness of breath or chest pain. B. Please call [facility] at if you have any concerns or questions about your operation or recovery. The doctor or his nurse will return your call promptly. C. You must take antibiotics before dental work, bladder, bowel or other surgery. Your doctor will provide you with a permanent care to carry describing this precaution. IMPORTANT: * TAKE YOUR LOVENOX INJECTION ONCE A DAY FOR ONE MONTH. IF YOU EXPERIENCE INCREASED BRUISING, NOSE BLEEDS ETC, PLEASE CALL THE OFFICE IMMEDIATELY. [phone] ALSO CALL YOUR PRIMARY CARE PHYSICIAN. * CALL IF INCREASED PAIN, REDNESS, DRAINAGE OR FEVER GREATER THAT 101. * WEAR ARYAN HOSE 20 HOURS PER DAY FOR 2 WEEKS. * RIK dressing - This is a large suction dressing covering your incision. This will help pull any excess drainage from the wound and allow your incision to heal properly. You may shower with this if you can keep the unit outside of the shower. If any bleeding or leakage is noted please call your doctor's office. This will remain on your incision for 7 days and then should be removed. This can be done yourself or by the home nursing staff if applicable. The entire unit is disposable once removed. Once removed, keep incision clean and dry. If redness or drainage is noted, please call your surgeon. . * DERMABOND Prineo- This is a mesh tape dressing that is covered with glue. It should remain in place until the incision is properly healed, usually 10-14 days. This dressing is designed to naturally slough off. You may trim the excess mesh tape as it peels off. Incision may be briefly wet in a shower. Dry immediately by blotting with a clean, dry towel. Do not bath or swim until instructed by your doctor. Do not scratch, rub, or pick at the dressing. Do not apply any topical ointments or lotions until dressing is completely removed and/or instructed by your doctor. There may be a small piece of suture material at one end of your incision. Do not pull or trim this. If it is bothersome or catching on clothing, you may cover it with a band-aid. FOLLOW UP VISIT: If appointment is not already scheduled: Please call [facility] to make a follow-up appointment for 2 weeks after your surgery at . Please follow up with your Primary Care Physician to discuss your increased bruising / nosebleeds with Aspirin products and a general check up. Stand-Alone Forms: My [employer], Smoking Cessation Medications and DC Order Prescriptions: New acetaminophen [Tylenol Extra Strength] 500 mg Tablet 1,000 mg PO Q8 14 Days Qty: 84 RF: 0 cefadroxil 500 mg capsule 500 mg PO BID Qty: 14 RF: 0 polyethylene glycol 3350 [Miralax] 17 gram powder in packet 17 g PO DAILY PRN (Reason: constipation) Qty: 5 RF: 0 enoxaparin 40 mg/0.4 mL Syringe 40 mg subcut Q24H 30 Days Qty: 30 RF: 1 hydromorphone 2 mg tablet 2 mg PO Q4H MDD 6 tabs Qty: 18 RF: 0 Discontinued ibuprofen 200 mg Tablet 1,000 mg PO HS PRN (Reason: Pain) RF: 0 Discharge Orders: Discharge Order (Routine); Ordered 08/19/21 Ordered By: Rito Funk/Other Patient Handouts: DVT Post Op Prevention Admission Data Admit Date/Time: 08/18/21 11:53 Attending Provider: Adolfo Ryan Admit Provider: Adolfo Ryan Primary Care Provider: Luis Cornelius Other Interventions: Discharge Summary Assessment (RN) Last Done: 08/19/21 11:45
== END 2021-08-19 12:19 | disposition home health service (06) | DRG 470 ==
LOC: ASU 07:01 → PACUINP 07:01 → INTOOBSV 11:53 → OBSVTOIN 11:53 → 3N 16:14